=== PATIENT | female | born 1950 | race Caucasian/White ===

== ENCOUNTER → 2016-10-10 | Outpatient (REF) | payer MEDICARE, OTHER ==
[~2016-10-10] MED LIST: /ATOR40TA; /CELE20CA; /PANT40TA; ACET65TA; ALBU83IN; ASPI81TA83; ATIV0.5T; AUGMENTIN PO; AVALIDE PO; BISA10SU2; BISA5TA; BLACK COHOSH; CELEBREX PO; COLA100C2; DARV100T; DILA100C; DIOV80TA; KEPPRA PO; MILKSUS; POTA10CA2; TOPR100T; VITAMIN B COMPLE1; nystatin powder
[2016-10-10 11:52] LABS: MEAN CORPUSCULAR HEMOGLOBIN 29.2 pg (27.0-33.0); MEAN CORPUSCULAR HGB CONC 32.7 g/dl (32.0-36.5); MEAN CORPUSCULAR VOLUME 89.2 fl (80.0-96.0); WHITE BLOOD COUNT 6.9 K/mm3 (4.0-10.0)
[2016-10-10 12:21] LABS: ALBUMIN 3.7 GM/DL (3.2-5.2); ALKALINE PHOSPHATASE 61 U/L (45-117); ALT/SGPT 21 U/L (12-78); ANION GAP 7 MEQ/L (8-16); AST/SGOT 20 U/L (15-37); BILIRUBIN,TOTAL 0.4 MG/DL (0.2-1.0); BLOOD UREA NITROGEN 23 MG/DL (7-18); CALCIUM LEVEL 9.5 MG/DL (8.8-10.2); CARBON DIOXIDE LEVEL 31 MEQ/L (21-32); CHLORIDE LEVEL 102 MEQ/L (98-107); CHOLESTEROL LEVEL 150 MG/DL (<200); CREATININE FOR GFR 0.72 MG/DL (0.55-1.02); GLOMERULAR FILTRATION RATE > 60.0 (>45); GLUCOSE, FASTING 94 MG/DL (80-110); SODIUM LEVEL 140 MEQ/L (136-145); TOTAL PROTEIN 7.4 GM/DL (6.4-8.2); TRIGLYCERIDES LEVEL 209 MG/DL (<150)
== END ==
LOC: M SFHCPLAZ 08:49
PROVIDERS: ATTEND Nurse Practitioner Family
DX: M15.9 Polyosteoarthritis, unspecified (principal); I10 Essential (primary) hypertension; E88.81 Metabolic syndrome and other insulin resistance; E78.2 Mixed hyperlipidemia; E55.9 Vitamin D deficiency, unspecified; Z79.899 Other long term (current) drug therapy

== ENCOUNTER → 2017-04-05 | Outpatient (REF) | payer MEDICARE, OTHER ==
[2017-04-05 13:31] LABS: ANION GAP 5 MEQ/L (8-16); BLOOD UREA NITROGEN 23 MG/DL (7-18); CALCIUM LEVEL 9.6 MG/DL (8.8-10.2); CARBON DIOXIDE LEVEL 31 MEQ/L (21-32); CHLORIDE LEVEL 105 MEQ/L (98-107); CREATININE FOR GFR 0.75 MG/DL (0.55-1.02); GLOMERULAR FILTRATION RATE > 60.0 (>45); GLUCOSE, FASTING 99 MG/DL (80-110); POTASSIUM SERUM 4.8 MEQ/L (3.5-5.1); SODIUM LEVEL 141 MEQ/L (136-145)
== END ==
LOC: M SFHCPLAZ 08:56
PROVIDERS: ATTEND Nurse Practitioner Family
DX: I10 Essential (primary) hypertension (principal); E55.9 Vitamin D deficiency, unspecified

== ENCOUNTER → 2017-04-23 | Outpatient (CLI) | payer MEDICARE, OTHER ==
--- NOTE | 2017-04-23 10:02 | REPMRS ---
Patient History The patient states she had a clinical breast exam in 04/2017. Patient is postmenopausal. No known family history of cancer. Took hormonal contraceptives for 2 years. Digital Woman Screen Mammo: April 23, 2017 - Exam #: [id number] Bilateral CC and MLO view(s) were taken. Technologist: Beth Whitney, Technologist Prior study comparison: April 21, 2016, digital woman screen mammo performed at [facility]. April 13, 2015, digital bilateral screening mammo, performed at [facility]. FINDINGS: There are scattered fibroglandular densities. There has been no change in the appearance of the mammogram from the prior studies. There is a mild amount of residual fibroglandular tissue which is fairly symmetric. There is no interval development of dominant mass, architectural distortion, or clustered microcalcification suggestive of malignancy. ASSESSMENT: BI-RADS/ACR category 1 mammogram. Negative. Recommendation Routine screening mammogram in 1 year (for women over age 40). This mammogram was interpreted with the aid of an FDA-approved computer-aided dectection system. Electronically Signed By: Jeet Aguialr MD 04/23/17 [id number]
== END ==
LOC: M WHC 08:07
PROVIDERS: ATTEND Nurse Practitioner Family
DX: Z12.31 Encounter for screening mammogram for malignant neoplasm of breast (principal); Z78.0 Asymptomatic menopausal state; Z92.0 Personal history of contraception

== ENCOUNTER → 2017-10-04 | Outpatient (REF) | payer MEDICARE, OTHER ==
[2017-10-04 13:14] LABS: MALB URINE SIEMENS 10.3 MG/L
[2017-10-04 13:19] LABS: ALBUMIN 3.7 GM/DL (3.2-5.2); ALBUMIN/GLOBULIN RATIO 0.97 (1.00-1.93); ALKALINE PHOSPHATASE 63 U/L (45-117); ALT/SGPT 19 U/L (12-78); ANION GAP 7 MEQ/L (8-16); AST/SGOT 21 U/L (7-37); BILIRUBIN,TOTAL 0.5 MG/DL (0.2-1.0); BLOOD UREA NITROGEN 26 MG/DL (7-18); CALCIUM LEVEL 9.7 MG/DL (8.8-10.2); CARBON DIOXIDE LEVEL 31 MEQ/L (21-32); CHLORIDE LEVEL 104 MEQ/L (98-107); CHOLESTEROL LEVEL 136 MG/DL (<200); CHOLESTEROL RISK RATIO 2.518 (<5); CREATININE FOR GFR 0.89 MG/DL (0.55-1.30); GLOMERULAR FILTRATION RATE > 60.0 (>45); GLUCOSE, FASTING 98 MG/DL (70-100); HDL CHOLESTEROL 54 MG/DL (>40); LDL CHOLESTEROL 40.2 MG/DL (<100); NON-HDL-C 82 MG/DL; POTASSIUM SERUM 4.2 MEQ/L (3.5-5.1); SODIUM LEVEL 142 MEQ/L (136-145); TOTAL PROTEIN 7.5 GM/DL (6.4-8.2); TRIGLYCERIDES LEVEL 209 MG/DL (<150)
[2017-10-04 13:31] LABS: ESTIMATED AVERAGE GLUCOSE 120 MG/DL (60-110); HEMOGLOBIN A1c 5.8 %
== END ==
LOC: M SFHCPLAZ 08:02
DX: E88.81 Metabolic syndrome and other insulin resistance (principal); E78.2 Mixed hyperlipidemia; Z79.899 Other long term (current) drug therapy
CPT/HCPCS: 80053

== ENCOUNTER → 2018-02-04 | Outpatient (REF) | payer MEDICARE, OTHER ==
[2018-02-04 13:47] LABS: ANION GAP 6 MEQ/L (8-16); BLOOD UREA NITROGEN 28 MG/DL (7-18); CARBON DIOXIDE LEVEL 31 MEQ/L (21-32); CHLORIDE LEVEL 104 MEQ/L (98-107); CREATININE FOR GFR 0.88 MG/DL (0.55-1.30); GLOMERULAR FILTRATION RATE > 60.0 (>45); GLUCOSE, FASTING 113 MG/DL (70-100); POTASSIUM SERUM 4.3 MEQ/L (3.5-5.1); SODIUM LEVEL 141 MEQ/L (136-145)
[2018-02-04 14:12] LABS: TOTAL 25(OH) VITAMIN D 35.3 NG/ML (30.0-100.0)
== END ==
LOC: M SFHCPLAZ 08:50
DX: I10 Essential (primary) hypertension (principal); E55.9 Vitamin D deficiency, unspecified
CPT/HCPCS: 82306

== ENCOUNTER → 2018-04-24 | Outpatient (CLI) | payer MEDICARE, OTHER ==
--- NOTE | 2018-04-24 14:12 | REPMRS ---
Patient History The patient states she has not had a clinical breast exam in over a year. No known family history of cancer. Took hormonal contraceptives for 2 years. Digital Woman Screen Mammo: April 24, 2018 - Exam #: [id number] Bilateral CC and MLO view(s) were taken. Technologist: Beth Whitney, Technologist Prior study comparison: April 23, 2017, digital woman screen mammo performed at [facility]. April 21, 2016, digital woman screen mammo performed at [facility]. April 13, 2015, digital bilateral screening mammo, performed at [facility]. FINDINGS: The breast tissue is almost entirely fat. There has been no change in the appearance of the mammogram from the prior studies. There is no interval development of dominant mass, architectural distortion, or clustered microcalcification typical of malignancy. 3-D tomosynthesis shows no additional findings. Assessment: BI-RADS/ACR category 1 mammogram. Negative. Recommendation Routine screening mammogram of both breasts in 1 year (for women over age 40). This patient's Lifetime Breast Cancer RIsk is estimated at 6.4 %. This mammogram was interpreted with the aid of an FDA-approved computer-aided dectection system. Electronically Signed By: Isiah Mcconnell MD 04/24/18 [id number]
== END ==
LOC: M WHC 10:01
PROVIDERS: ATTEND Nurse Practitioner Family
DX: Z12.31 Encounter for screening mammogram for malignant neoplasm of breast (principal); Z92.0 Personal history of contraception

== ENCOUNTER → 2018-06-17 | Outpatient (REF) | payer MEDICARE, OTHER ==
[2018-06-17 13:09] LABS: APPEARANCE, URINE HAZY (CLEAR); BACTERIA, URINE AUTO NEGATIVE (NEGATIVE); BILIRUBIN, URINE AUTO NEGATIVE (NEGATIVE); BLOOD, URINE BLOOD 2+ (NEGATIVE); GLUCOSE, URINE (UA) AUTO NEGATIVE (NEGATIVE); KETONE, URINE AUTO NEGATIVE (NEGATIVE); LEUKOCYTE ESTERASE, URINE AUTO 2+ (NEGATIVE); MUCUS, URINE SMALL (NEGATIVE); NITRITE, URINE AUTO NEGATIVE (NEGATIVE); PROTEIN, URINE AUTO NEGATIVE (NEGATIVE); RBC, URINE AUTO TNTC /HPF (0-3); SPECIFIC GRAVITY URINE AUTO 1.017 (1.002-1.035); SQUAMOUS EPITHELIAL CELL UR AU 0 /HPF (0-6); UROBILINOGEN, URINE AUTO 0.2 mg/dL (0.0-2.0); WBC, URINE AUTO 158 /HPF (0-3)
[2018-06-17 13:12] LABS: COLOR, URINE YELLOW (YELLOW)
== END ==
LOC: M LAB REF 12:43
PROVIDERS: ATTEND Physician Assistant Medical
DX: N39.0 Urinary tract infection, site not specified (principal)

== ENCOUNTER → 2018-09-05 | Outpatient (REF) | payer MEDICARE, OTHER ==
[~2018-09-05] MED LIST changes: -/ATOR40TA; -/CELE20CA; -/PANT40TA; +CELE1CAP4; +LIPI1TAB2; +METO-745; +PROT1TAB2; -TOPR100T
[2018-09-05 10:37] LABS: ALBUMIN 3.7 GM/DL (3.2-5.2); ALT/SGPT 17 U/L (12-78); BILIRUBIN,TOTAL 0.4 MG/DL (0.2-1.0); BLOOD UREA NITROGEN 25 MG/DL (7-18); CALCIUM LEVEL 9.1 MG/DL (8.8-10.2); CARBON DIOXIDE LEVEL 31 MEQ/L (21-32); CHLORIDE LEVEL 105 MEQ/L (98-107); CHOLESTEROL LEVEL 148 MG/DL (<200); CHOLESTEROL RISK RATIO 2.642 (<5); GLOMERULAR FILTRATION RATE > 60.0 (>45); GLUCOSE, FASTING 107 MG/DL (70-100); HDL CHOLESTEROL 56 MG/DL (>40); LDL CHOLESTEROL 49 MG/DL (<100); NON-HDL-C 92 MG/DL; POTASSIUM SERUM 4.2 MEQ/L (3.5-5.1); SODIUM LEVEL 140 MEQ/L (136-145); TOTAL PROTEIN 7.4 GM/DL (6.4-8.2); TRIGLYCERIDES LEVEL 217 MG/DL (<150)
[2018-09-05 11:06] LABS: MALB URINE SIEMENS 13.4 MG/L; MAU/CREAT RATIO 12.5 MCG/MG (0.0-30.0)
[2018-09-05 11:57] LABS: HEMOGLOBIN A1c 5.9 %
== END ==
LOC: M SFHCPLAZ 08:21
PROVIDERS: ATTEND Nurse Practitioner Family
DX: I10 Essential (primary) hypertension (principal); E88.81 Metabolic syndrome and other insulin resistance; E78.2 Mixed hyperlipidemia

== ENCOUNTER → 2019-01-01 | Outpatient (REF) | payer MEDICARE, OTHER ==
[2019-01-01 10:29] LABS: BLOOD UREA NITROGEN 28 MG/DL (7-18); CARBON DIOXIDE LEVEL 33 MEQ/L (21-32); CHLORIDE LEVEL 107 MEQ/L (98-107); CREATININE FOR GFR 0.92 MG/DL (0.55-1.30); GLOMERULAR FILTRATION RATE > 60.0 (>39); GLUCOSE, FASTING 109 MG/DL (70-100); POTASSIUM SERUM 4.1 MEQ/L (3.5-5.1); SODIUM LEVEL 143 MEQ/L (136-145)
[2019-01-01 10:50] LABS: HEMOGLOBIN A1c 5.9 %
== END ==
LOC: M SFHCPLAZ 07:49
PROVIDERS: ATTEND Family Medicine
DX: R73.03 Prediabetes (principal); I10 Essential (primary) hypertension

== ENCOUNTER → 2019-03-25 | Outpatient (REF) | payer MEDICARE, OTHER ==
[2019-03-25 12:23] LABS: AMORPHOUS SEDIMENT SMALL (NEGATIVE); APPEARANCE, URINE TURBID (CLEAR); BACTERIA, URINE AUTO NEGATIVE (NEGATIVE); BILIRUBIN, URINE AUTO NEGATIVE (NEGATIVE); BLOOD, URINE BLOOD NEGATIVE (NEGATIVE); COLOR, URINE AMBER (YELLOW); GLUCOSE, URINE (UA) AUTO NEGATIVE (NEGATIVE); KETONE, URINE AUTO NEGATIVE (NEGATIVE); LEUKOCYTE ESTERASE, URINE AUTO NEGATIVE (NEGATIVE); MUCUS, URINE SMALL (NEGATIVE); NITRITE, URINE AUTO NEGATIVE (NEGATIVE); PROTEIN, URINE AUTO 1+ mg/dL (NEGATIVE); RBC, URINE AUTO 2 /HPF (0-3); SPECIFIC GRAVITY URINE AUTO 1.021 (1.002-1.035); SQUAMOUS EPITHELIAL CELL UR AU 0 /HPF (0-6); UROBILINOGEN, URINE AUTO 0.2 mg/dL (0.0-2.0); WBC, URINE AUTO 1 /HPF (0-3)
== END ==
LOC: M LAB REF 11:51
PROVIDERS: ATTEND Physician Assistant Medical
DX: N39.0 Urinary tract infection, site not specified (principal)

== ENCOUNTER → 2019-04-28 | Outpatient (CLI) | payer MEDICARE, OTHER ==
--- NOTE | 2019-04-28 14:41 | REPMRS ---
Patient History The patient states she has not had a clinical breast exam in over a year. No known family history of cancer. Took hormonal contraceptives for 2 years. 3D TOMOSYNTHESIS WAS PERFORMED. [facility] lifetime risk for breast cancer is 6.0%. Digital Woman Screen Mammo: April 28, 2019 - Exam #: [id number] Bilateral CC and MLO view(s) were taken. Technologist: Patsy Sagastume, Technologist Prior study comparison: April 24, 2018, bilateral digital woman screen mammo performed at [facility] [place]. April 23, 2017, digital woman screen mammo performed at [facility] [place]. FINDINGS: There are scattered fibroglandular densities. There has been no change in the appearance of the mammogram from the prior studies. There is a mild amount of residual fibroglandular tissue which is fairly symmetric. There is no interval development of dominant mass, architectural distortion, or clustered microcalcification suggestive of malignancy. Assessment: BI-RADS/ACR category 1 mammogram. Negative Mammogram. Recommendation Routine screening mammogram in 1 year (for women over age 40). This mammogram was interpreted with the aid of an FDA-approved computer-aided dectection system. Electronically Signed By: Jeet Aguilar MD 04/28/19 [id number]
== END ==
LOC: M WHC 13:32
PROVIDERS: ATTEND Nurse Practitioner Family
DX: Z12.31 Encounter for screening mammogram for malignant neoplasm of breast (principal); Z92.0 Personal history of contraception; I10 Essential (primary) hypertension; R73.03 Prediabetes; E78.2 Mixed hyperlipidemia; E55.9 Vitamin D deficiency, unspecified

== ENCOUNTER → 2019-04-28 | Outpatient (REF) | payer MEDICARE, OTHER ==
[2019-04-28 12:43] LABS: ALBUMIN 3.6 GM/DL (3.2-5.2); ALT/SGPT 13 U/L (12-78); BILIRUBIN,TOTAL 0.4 MG/DL (0.2-1.0); BLOOD UREA NITROGEN 27 MG/DL (7-18); CALCIUM LEVEL 9.7 MG/DL (8.8-10.2); CARBON DIOXIDE LEVEL 29 MEQ/L (21-32); CHLORIDE LEVEL 104 MEQ/L (98-107); CHOLESTEROL LEVEL 146 MG/DL (<200); CHOLESTEROL RISK RATIO 2.517 (<5); CREATININE FOR GFR 0.82 MG/DL (0.55-1.30); GLOMERULAR FILTRATION RATE > 60.0 (>39); GLUCOSE, FASTING 104 MG/DL (70-100); HDL CHOLESTEROL 58 MG/DL (>40); LDL CHOLESTEROL 57 MG/DL (<100); NON-HDL-C 88 MG/DL; POTASSIUM SERUM 4.4 MEQ/L (3.5-5.1); SODIUM LEVEL 141 MEQ/L (136-145); TOTAL PROTEIN 7.6 GM/DL (6.4-8.2); TRIGLYCERIDES LEVEL 157 MG/DL (<150)
[2019-04-28 12:49] LABS: TOTAL 25(OH) VITAMIN D 44.4 NG/ML (30.0-100.0)
[2019-04-28 12:55] LABS: HEMOGLOBIN A1c 6.3 %
[2019-04-28 13:06] LABS: MALB URINE SIEMENS 19.8 MG/L; MAU/CREAT RATIO 15.7 MCG/MG (0.0-30.0)
== END ==
LOC: M SFHCPLAZ 08:40
PROVIDERS: ATTEND Nurse Practitioner Family
DX: I10 Essential (primary) hypertension (principal); R73.03 Prediabetes; E78.2 Mixed hyperlipidemia; E55.9 Vitamin D deficiency, unspecified

== ENCOUNTER 2019-07-15 16:35 | Inpatient (IN) | payer MEDICARE, OTHER ==
[~2019-07-15] VITALS: Ht 162.6 cm; Wt 136.1 kg
[2019-07-15] MEDS ORDERED: ACETAMINOPHEN TAB 650MG DOSE (2X325MG) PO PRN (18:30)
[2019-07-15] MEDS ORDERED: MOM 30ML SUSPENSION UDC PO PRN (18:30)
[2019-07-15 20:00] VITALS: BP 145/85
[2019-07-15] MEDS ORDERED: ALLE180T33 PO (20:24)
[2019-07-15] MEDS ORDERED: MELO15TA28 PO (20:24)
[2019-07-15] MEDS ORDERED: VANC1INJ IV (20:24)
[2019-07-15] MEDS ORDERED: VITA50005 PO (20:24)
[2019-07-15] MEDS ORDERED: EQL50TAB2 PO (20:24)
[2019-07-15] MEDS ORDERED: LOSA100T5 PO (20:24)
[2019-07-15] MEDS ORDERED: CEFT1INJ5 IV (20:24)
[2019-07-15] MEDS ORDERED: METO1TAB33 PO (20:24)
[2019-07-15] MEDS ORDERED: ASPI81TA26 PO (20:24)
[2019-07-15] MEDS ORDERED: BLAC40CA PO (20:24)
[2019-07-15] MEDS ORDERED: ATOR40TA75 PO (20:24)
[2019-07-15] MEDS ORDERED: VITAD1000T PO (20:24)
[2019-07-15] MEDS ORDERED: LOVE1INJ SC (20:24)
[2019-07-15] MEDS ORDERED: PROT40IN4 IV (20:24)
[2019-07-15] MEDS ORDERED: POTA20TA6 PO (20:24)
[2019-07-15] MEDS ORDERED: AMPI2INJ18 IV (20:24)
[2019-07-15] MEDS ORDERED: VITMTA PO (20:24)
[2019-07-15] MEDS ORDERED: CALC500T52 PO (20:24)
[2019-07-15] MEDS: DOCUSATE SODIUM 100 MG CAP PO SCH (21:00)
[2019-07-15] MEDS ORDERED: SENNA 8.6 MG TAB (SENOKOT) PO SCH (21:00)
[2019-07-15] MEDS: AMPICILLIN SOD 2 GM in D5W MINI-BAG PLUS 100 ML IV SCH (23:01)
[2019-07-15] MEDS: LACTOBACILLUS ACIDOPHILUS CAP (BACID) PO SCH (23:02)
[2019-07-15] MEDS: HEPARIN SOD (PORCINE) 5000 UNITS/ML VIAL (J1644 PER 1000UNITS) SC SCH (23:02)
[2019-07-15] MEDS: SODIUM CHLORIDE 0.9% INJ 10 ML SYR IV PRN (23:40)
[2019-07-16] MEDS: AMPICILLIN SOD 2 GM in D5W MINI-BAG PLUS 100 ML IV SCH ×6 (02:34→21:51)
[2019-07-16 06:00] VITALS: BP 151/72
[2019-07-16] MEDS: SODIUM CHLORIDE 0.9% INJ 10 ML SYR IV SCH ×2 (06:14→18:20)
[2019-07-16 07:08] LABS: BASO % 0.4 % (0.0-1.0); EOS # 0.4 10^3/uL (0.0-0.5); EOS % 4.5 % (0.0-3.0); HEMATOCRIT 34.1 % (36.0-47.0); HEMOGLOBIN 10.9 g/dl (12.0-15.5); LYMPH # 1.4 10^3/uL (1.5-5.0); LYMPH % 14.2 % (24.0-44.0); MEAN CORPUSCULAR HEMOGLOBIN 28.8 pg (27.0-33.0); MONO # 0.7 10^3/uL (0.0-0.8); MONO % 7.1 % (0.0-5.0); NEUTROPHILS % 73.3 % (36.0-66.0); PLATELET COUNT, AUTOMATED 293 10^3/uL (150-450); RED BLOOD COUNT 3.79 10^6/uL (4.00-5.40); WHITE BLOOD COUNT 9.6 10^3/uL (4.0-10.0)
[2019-07-16 07:37] LABS: ALBUMIN 3.1 GM/DL (3.2-5.2); ALT/SGPT 19 U/L (12-78); BILIRUBIN,TOTAL 0.5 MG/DL (0.2-1.0); BLOOD UREA NITROGEN 10 MG/DL (7-18); CALCIUM LEVEL 9.5 MG/DL (8.8-10.2); CARBON DIOXIDE LEVEL 31 MEQ/L (21-32); CHLORIDE LEVEL 102 MEQ/L (98-107); GLOMERULAR FILTRATION RATE > 60.0 (>39); GLUCOSE, FASTING 110 MG/DL (70-100); POTASSIUM SERUM 3.4 MEQ/L (3.5-5.1); SODIUM LEVEL 140 MEQ/L (136-145); TOTAL PROTEIN 7.4 GM/DL (6.4-8.2)
[2019-07-16] MEDS: MELOXICAM (MOBIC) 7.5 MG TAB PO SCH (08:37)
[2019-07-16] MEDS: METOPROLOL SUCC (TopROL XL) 100MG *XL* TAB PO SCH (08:38)
[2019-07-16] MEDS: HEPARIN SOD (PORCINE) 5000 UNITS/ML VIAL (J1644 PER 1000UNITS) SC SCH ×2 (08:38→21:50)
[2019-07-16] MEDS: DOCUSATE SODIUM 100 MG CAP PO SCH ×2 (08:38→08:48)
[2019-07-16] MEDS: LOSARTAN 50 MG TAB PO SCH (08:38)
[2019-07-16] MEDS: hydroCHLOROthiazide 25 MG TAB PO SCH (08:39)
[2019-07-16] MEDS: OYSTER SHELL CALCIUM 500 MG TAB PO SCH (08:39)
[2019-07-16] MEDS: VITAMIN B COMPLEX/VIT C CAP PO SCH (08:39)
[2019-07-16] MEDS: ASPIRIN 81 MG CHEW TABLET PO SCH (08:39)
[2019-07-16] MEDS: VITAMIN D 1,000 INTERNATIONAL UNITS TABLET PO SCH (08:39)
[2019-07-16] MEDS: MAGNESIUM OXIDE 400 MG TAB (MAG-OX) PO SCH (08:39)
[2019-07-16] MEDS: PANTOPRAZOLE 40MG TAB (PROTONIX) PO SCH (08:39)
[2019-07-16] MEDS: LACTOBACILLUS ACIDOPHILUS CAP (BACID) PO SCH ×3 (08:39→21:49)
[2019-07-16] MEDS: MULTIVITAMINS/MINERALS THERAP 1 TAB PO SCH (08:39)
[2019-07-16] MEDS: ATORVASTATIN 20 MG TAB PO SCH (08:40)
[2019-07-16] MEDS: SODIUM CHLORIDE 0.9% INJ 10 ML SYR IV PRN ×3 (09:50→22:43)
--- NOTE | 2019-07-16 10:57 | HPEPDOC ---
Director Vaccine Note DATE OF ADMISSION: 07-15-19 DATE OF SERVICE: 07-16-19 TIME OF ADMISSION: Please refer to physician's admission order. SOURCE OF ADMISSION INFORMATION: [facility] records, assistant case manager Torri from [facility], patient CHIEF COMPLAINT: meningitis HISTORY OF PRESENT ILLNESS: 68F pmh HTN, HLD, OA, asthma, meningitis in 2009 presented to [facility] on 07-07-19 with nausea and vomiting, altered mental status and on exam had nuchal rigidity with photophobia. She was started on IV Ampicillin, Rochephin, and Vancomycin for sepsis thought to be due to meningitis and underwent an LP on 07-08-19 with CSF showing 1703 wbcs and 163 proteins. Blood, CSF, and urine cultures obtained on admission were all negative. CXR also showed bilateral lower lobe infiltrates. She continued her antibiotics and on day of discharge was told to just continue on Ampicillin for a total of 3 weeks, end date 07-28-19. She had impairments in mobility below her prior level of function and required assistance with ADL management as well. She was deemed medically appropriate for discharge to ARU on 07-15-19. REVIEW OF SYSTEMS: The following is a completed review of systems and has been reviewed. Review of systems otherwise unremarkable. PAIN: Patient self reports no pain EYES: No recent vision changes EARS, NOSE, & THROAT: No throat pain, or dysphagia, or rhinorrhea CARDIOVASCULAR: Denies chest pain or palpitations PULMONARY: Denies shortness of breath, +cough GASTROINTESTINAL: +diarrhea GENITOURINARY:denies dysuria MUSCULOSKELETAL: generalized weakness NEUROLOGICAL: denies tremor or focal weakness HEMATOLOGICAL: denies easy bruising SKIN: + abdominal rash PSYCHIATRIC: Unremarkable All other review of systems found to be negative. PAST MEDICAL HISTORY: as per HPI PAST SURGICAL HISTORY: as per HPI ALLERGIES: Please see below. MEDICATIONS: Please see below. FAMILY HISTORY: DM and COPD SOCIAL HISTORY: No smoking/illicit drugs, occasional ETOH DIET: chopped PHYSICAL EXAMINATION: VITAL SIGNS: Please see below. GENERAL: Pleasant and cooperative. No acute distress. +obese HEENT: PERRL. Extraocular movements intact. Clear conjunctiva CARDIOVASCULAR: Regular rate and rhythm. No murmurs, rubs, or gallops LUNGS: Clear to auscultation bilaterally. No wheezes. No rhonchi. ABDOMEN: [oft, nontender, nondistended. Positive bowel sounds. Normal active bowel sounds NEUROLOGICAL: Alert and oriented times three. Cranial nerves II through XII grossly intact. Sensation grossly intact (-) babniksi and Hoffmans bilat EXTREMITIES: 5\5 strength bilateral upper extremities. 5\5 strength right lower extremity. 5/5 strength in left lower extremity. SKIN: abdominal scattered papules jus under breast line, scattered seborrheic keratosis, RUE PICC, low back ecchymosis LABORATORY DATA: Please see below. IMAGING: Imaging documentation personally reviewed by record FUNCTIONAL STATUS: Premorbid: Mod-Independent with all activities of daily life as well as mobility with cane On Admission: Contact guard for ambulation, functional transfers, supervision for dressing, toileting GOALS: Mod-I community distances for ambulation, functional transfers, stairs, dressing, bathing, toileting, medical optimization ASSESSMENT:68-year-old F with past medical history of HTN, meningitis who presents status post recurrent meningitis PLAN: 1. Rehab- PT/OT advance gait training, high level balance, ADLs, strengthen/stretch/maintain ROM all 4 limbs 2. Neuro: patient currently being treated for meningitis, blood cx, CSF, and urine cx negative however antibiotics started prior to tests being drawn -c/u IV ampicillin until 3-20 per [facility]'s recs, will consult ID while here to assist with further management 3. Cardiac: hx of HTN c/u metoprolol, Losartan-HCTZ, medicine consulted to assist in management -HLD c/u statin -c/u ASA for cardio-protection 4. Resp: hx of asthma c/u Duonebs -encourage incentive spirometry, monitor for infection -KALEB with CPAP at home, machine broken, will start nocturnal 02 5. GI ppx: protonix- hold bowel meds and consider checking C diff if loose stools do not subside 6. DVT ppx: heparin and TEDs 7. : monitor PVRs 8. Pain: tylneol, and meloxicam 9. DIspo: TBD POST ADMISSION PHYSICIAN EVALUATION: Medical and functional status: Description of medical status, medical assessment: As above. Rehabilitation diagnosis and current and prior cold morbid medical conditions as above. Risk of complications and plans to mitigate them as above. Description of functional status current status is as above. Prior status as above. Status compared to preadmission: There are no clinically significant differences between the patient's current status and the information described on the preadmission screening document. Treatment plan anticipated: Treatment plan is as described above. Required disciplines including physical therapy, occupational therapy, others as noted above. Intensity of services: 3 hours a day, 6 days a week. Special considerations: There are no specific special or safety considerations that would likely preclude immediate implementation of an intensive rehabilitation program or subsequently influence the plan of care. ATTESTATION: Considering all the information above, it is my best judgment that this patient requires intensive rehabilitation therapy as described above and an inpatient hospital environment due to the complexity of nursing, medical, and rehabilitation needs required by the patient. Furthermore, this patient can reasonably be expected to participate in an benefit from an inpatient rehabilitation stay with an interdisciplinary team approach to the delivery of rehabilitation care under the direction and supervision of rehabilitation physician. PROGNOSIS: Excellent ESTIMATED LENGTH OF STAY:10-14 days. PROJECTED DISCHARGE DESTINATION: Home with family support and any durable medical equipment required to increase functional safety and mobility. TIME SPENT COUNSELING AND COORDINATING INITIAL CARE: Greater than 70 minutes. Vital Signs Vital Sign - Last 24 Hours 07/15/19 07/16/19 07/16/19 20:00 06:00 08:38 Temp 97.1 97.8 Pulse 85 86 86 Resp 20 20 B/P (MAP) 145/85 (105) 151/72 (98) 151/72 Pulse Ox 99 96 O2 Delivery Room Air Room Air Laboratory Data CBC/BMP Laboratory Tests 07/16/19 06:29 Labs 24H Laboratory Tests 2 07/16/19 06:29: Immature Granulocyte % (Auto) 0.5, Neutrophils (%) (Auto) 73.3H, Lymphocytes (%) (Auto) 14.2L, Monocytes (%) (Auto) 7.1H, Eosinophils (%) (Auto) 4.5H, Basophils (%) (Auto) 0.4, Neutrophils # (Auto) 7.0, Lymphocytes # (Auto) 1.4L, Monocytes # (Auto) 0.7, Eosinophils # (Auto) 0.4, Basophils # (Auto) 0.0, Nucleated Red Blood Cells % (auto) 0.0, Anion Gap 7L, Glomerular Filtration Rate > 60.0, Calcium Level 9.5, Total Bilirubin 0.5, Aspartate Amino Transf (AST/SGOT) 25, Alanine Aminotransferase (ALT/SGPT) 19, Alkaline Phosphatase 47, Total Protein 7.4, Albumin 3.1L, Albumin/Globulin Ratio 0.72L Home Medications Scheduled Ampicillin Sodium (Ampicillin Sodium) 2 Gm Vial, 2 GM IV Q4H, (Reported) STARTED AT [facility] ON 07/08/19 Aspirin (Aspirin EC) 81 Mg Tablet.dr, 81 MG PO DAILY, (Reported) Atorvastatin Calcium (Atorvastatin Calcium) 40 Mg Tablet, 40 MG PO DAILY, (Reported) Black Cohosh Root Extract (Black Cohosh) 40 Mg Capsule, 40 MG PO DAILY, (Reported) Calcium Carb,Gluc/Mag Ox,Gluc (Calcium Magnesium Caplet) 1 Each Tablet, 1 TAB PO DAILY, (Reported) Ceftriaxone Sodium (Ceftriaxone) 1 Gm Vial, 2 GM IV Q12H, (Reported) STARTED AT [facility] ON 07/09/19 Cholecalciferol (Vitamin D3) (Vitamin D3) 1,000 Unit Tablet, 1,000 UNITS PO DAILY, (Reported) Enoxaparin Sodium (Lovenox) 40 Mg/0.4 Ml Syringe, 40 MG SC DAILY, (Reported) STARTED AT [facility] Ergocalciferol (Vitamin D2) (Vitamin D2) 50,000 Units Cap, 50,000 UNITS PO QMONTH, (Reported) LAST SUNDAY OF EVERY MONTH Fexofenadine HCl (Kinsey Allergy) 180 Mg Tablet, 180 MG PO DAILY, (Reported) Losartan/Hydrochlorothiazide (Losartan-Hctz 100-25 mg Tab) 1 Each Tablet, 1 TAB PO DAILY, (Reported) Meloxicam (Meloxicam) 15 Mg Tablet, 15 MG PO DAILY, (Reported) Metoprolol Succinate (Metoprolol Succinate) 100 Mg Tab.er.24h, 100 MG PO DAILY, (Reported) Multivitamins (Thera M Plus Tablet) 1 Each Tablet, 1 TAB PO DAILY, (Reported) Pantoprazole Sodium (Protonix IV) 40 Mg Vial, 40 MG IV DAILY, (Reported) STARTED AT [facility] Potassium Chloride (Potassium Chloride) 20 Meq Tab.er.prt, 40 MEQ PO ASDIRECTED, (Reported) RECEIVED AT [facility] Vancomycin HCl in 5 % Dextrose (Vancomycin 1.75 Gram/500Ml-D5w) 1.75 Gm/500 Ml Plast..bag, 1.75 GM IV ASDIRECTED, (Reported) EVERY 18 HOURS - STARTED AT [facility] ON 07/12/19 Vitamin B Complex (Vitamin B Complex) 1 Each Tablet, 1 TAB PO DAILY, (Reported) Allergies Coded Allergies: No Known Drug Allergies (Verified Allergy, Unknown, 07/15/19) A-FIB/CHADSVASC A-FIB History Current/History of A-Fib/PAF?: No SHELLY NGUYEN MD Jul 16, 2019 10:57
[2019-07-16] MEDS ORDERED: POTASSIUM CHLORIDE 10 MEQ SR TABLET PO ONE (12:00)
[2019-07-16 14:00] VITALS: BP 169/75
--- NOTE | 2019-07-16 15:25 | HPEPDOC ---
General Date of Admission Jul 15, 2019 at 19:20 Date of Service: Jul 16, 2019 Chief Complaint The patient is a 68-year-old female admitted with a reason for visit of Menningitis. Source: Patient, RN/MD, Old records Exam Limitations: No limitations Timing/Duration: Resolved prior to arrival Associated Symptoms: Weakness History of Present Illness Ms. Elder is a 68-year-old female who was admitted to the ARU from [facility] with a diagnosis of meningitis, sepsis. Ms. Elder had been to the hospital earlier that day(07/07) with her , when she left to go home, but was find parked in an unfamiliar driveway. She was reportedly taken to the ED with altered mental status. In the ED, she was afebrile, however, septic and was treated empirically for meningitis in light of her having a history of meningitis some 10 years ago. Patient informed me that her daughter told her that she had the same symptoms as she had 10 years ago when she had meningitis. She was started on antibiotics as noted above, however, her LP was not completed until 12-24 hours after antibiotics had been started. Subsequently, her LP reportedly did not grow any bacteria. [facility] has discharged the patient with [address] of IV am[address]illin. Dr. Newman, infectious disease will be consulted per Dr. Narayan. Patient is seen sitting up in her recliner this afternoon, she says she feels pretty good. She just has a lot of weakness at this time after being in the hospital. She is hoping to regain much of her strength and acute rehabilitation. Patient reported loose watery stools since she started taking antibiotics for me ningitis. She has had 3 BMs today, they are certainly loose , but there was very little volume. Patient denied a history of C. difficile. She also has some postnasal drip in the morning and reported a history of chronic seasonal allergies. Home Medications Scheduled Ampicillin Sodium (Ampicillin Sodium) 2 Gm Vial, 2 GM IV Q4H, (Reported) STARTED AT [facility] ON 07/08/19 Aspirin (Aspirin EC) 81 Mg Tablet.dr, 81 MG PO DAILY, (Reported) Atorvastatin Calcium (Atorvastatin Calcium) 40 Mg Tablet, 40 MG PO DAILY, (Reported) Black Cohosh Root Extract (Black Cohosh) 40 Mg Capsule, 40 MG PO DAILY, (Reported) Calcium Carb,Gluc/Mag Ox,Gluc (Calcium Magnesium Caplet) 1 Each Tablet, 1 TAB PO DAILY, (Reported) Ceftriaxone Sodium (Ceftriaxone) 1 Gm Vial, 2 GM IV Q12H, (Reported) STARTED AT [facility] ON 07/09/19 Cholecalciferol (Vitamin D3) (Vitamin D3) 1,000 Unit Tablet, 1,000 UNITS PO DAILY, (Reported) Enoxaparin Sodium (Lovenox) 40 Mg/0.4 Ml Syringe, 40 MG SC DAILY, (Reported) STARTED AT [facility] Ergocalciferol (Vitamin D2) (Vitamin D2) 50,000 Units Cap, 50,000 UNITS PO QMONTH, (Reported) LAST SUNDAY OF EVERY MONTH Fexofenadine HCl (Kinsey Allergy) 180 Mg Tablet, 180 MG PO DAILY, (Reported) Losartan/Hydrochlorothiazide (Losartan-Hctz 100-25 mg Tab) 1 Each Tablet, 1 TAB PO DAILY, (Reported) Meloxicam (Meloxicam) 15 Mg Tablet, 15 MG PO DAILY, (Reported) Metoprolol Succinate (Metoprolol Succinate) 100 Mg Tab.er.24h, 100 MG PO DAILY, (Reported) Multivitamins (Thera M Plus Tablet) 1 Each Tablet, 1 TAB PO DAILY, (Reported) Pantoprazole Sodium (Protonix IV) 40 Mg Vial, 40 MG IV DAILY, (Reported) STARTED AT [facility] Potassium Chloride (Potassium Chloride) 20 Meq Tab.er.prt, 40 MEQ PO ASDIRECTED, (Reported) RECEIVED AT [facility] Vancomycin HCl in 5 % Dextrose (Vancomycin 1.75 Gram/500Ml-D5w) 1.75 Gm/500 Ml Plast..bag, 1.75 GM IV ASDIRECTED, (Reported) EVERY 18 HOURS - STARTED AT [facility] ON 07/12/19 Vitamin B Complex (Vitamin B Complex) 1 Each Tablet, 1 TAB PO DAILY, (Reported) Allergies Coded Allergies: No Known Drug Allergies (Verified Allergy, Unknown, 07/15/19) Past Medical History Medical History Hypertension Hyperlipidemia Asthma Osteoarthritis Seasonal allergies Surgical History None Family History Significant Family History: COPD (father, ), Diabetes (mother, ) Social History * Smoker: non-smoker Alcohol: rarely Drugs: denies A-FIB/CHADSVASC A-FIB History Current/History of A-Fib/PAF?: No Current PO Anticoag Therapy: No Review of Systems Constitutional: Reports: Weakness; Denies: Chills, Fever, Night Sweats Eyes: Denies: Pain ENT: Denies: Head Aches Skin: Denies: Rash Pulmonary: Denies: Dyspnea, Cough Cardiovascular: Denies: Chest Pain, Palpitations, Orthopnea, Paroxysmal Noc. Dyspnea, Lt Headedness Gastrointestinal: Reports: Diarrhea (denied a history of C. difficile); Denies: Nausea, Vomiting, Abdominal Pain, Constipation Genitourinary: Denies: Dysuria Hematologic: Denies: Bruising Musculoskeletal: Denies: Neck Pain, Back Pain, Joint Pain, Muscle Pain, Spasms Neurological: Denies: Weakness, Numbness, Change in speech, Confusion Psych: Reports: Mood Normal; Denies: Depression, Memory Issues Physical Examination General Exam: Positive: Alert, Cooperative, No Acute Distress, Other (morbidly obese) Eye Exam: Positive: PERRLA, Conjunctiva & lids normal, EOMI; Negative: Sclera icteric ENT Exam: Positive: Atraumatic, Mucous membr. moist/pink, Pharynx Normal Neck Exam: Positive: Supple; Negative: thyromegaly Chest Exam: Positive: Clear to auscultation, Normal air movement Heart Exam: Positive: Rate Normal, Regular Rhythm, Normal S1, Normal S2; Negative: Murmurs, Rubs Telemetry: Positive: No significant arrhythmia Abdomen Exam: Positive: Normal bowel sounds, Soft; Negative: Tenderness, Hepatospenomegaly Extremity Exam: Positive: Normal pulses; Negative: Clubbing, Cyanosis, Edema Skin Exam: Positive: Nl turgor and temperature Neuro Exam: Positive: Normal Speech, Cranial Nerves 3-12 NL Psych Exam: Positive: Mood NL, Oriented x 3 Vital Signs Vital Signs Date Time Temp Pulse Resp B/P (MAP) Pulse Ox O2 Delivery O2 Flow Rate FiO2 07/16/19 08:38 86 151/72 07/16/19 06:00 97.8 20 96 Room Air Laboratory Data Labs 24H Laboratory Tests 2 07/16/19 06:29: Immature Granulocyte % (Auto) 0.5, Neutrophils (%) (Auto) 73.3H, Lymphocytes (%) (Auto) 14.2L, Monocytes (%) (Auto) 7.1H, Eosinophils (%) (Auto) 4.5H, Basophils (%) (Auto) 0.4, Neutrophils # (Auto) 7.0, Lymphocytes # (Auto) 1.4L, Monocytes # (Auto) 0.7, Eosinophils # (Auto) 0.4, Basophils # (Auto) 0.0, Nucleated Red Blood Cells % (auto) 0.0, Anion Gap 7L, Glomerular Filtration Rate > 60.0, Calcium Level 9.5, Total Bilirubin 0.5, Aspartate Amino Transf (AST/SGOT) 25, Alanine Aminotransferase (ALT/SGPT) 19, Alkaline Phosphatase 47, Total Protein 7.4, Albumin 3.1L, Albumin/Globulin Ratio 0.72L CBC/BMP Laboratory Tests 07/16/19 06:29 Assessment/Plan Ms. Elder is a 68-year-old female who was admitted to the ARU from [facility] with a diagnosis of meningitis, sepsis. Ms. Elder had been to the hospital earlier that day(07/07) with her , when she left to go home, but was find parked in an unfamiliar driveway. She was reportedly taken to the ED with altered mental status. In the ED, she was afebrile, however, septic and was treated empirically for meningitis in light of her having a history of mening itis some 10 years ago. Patient informed me that her daughter told her that she had the same symptoms as she had 10 years ago when she had meningitis. She was started on antibiotics as noted above, however, her LP was not completed until 12-24 hours after antibiotics had been started. Subsequently, her LP reportedly did not grow any bacteria. [place] has discharged the patient with 3 weeks of IV ampicillin. Dr. Newman, infectious disease will be consulted per Dr. Narayan. Patient is seen sitting up in her recliner this afternoon, she says she feels pretty good. She just has a lot of weakness at this time after being in the hospital. She is hoping to regain much of her strength and acute rehab ilitation. Patient reported loose watery stools since she started taking antibiotics for meningitis. She has had 3 BMs today, they are certainly loose , but there was very little volume. Patient denied a history of C. difficile. She also has some postnasal drip in the morning and reported a history of chronic seasonal allergies. #1. Meningitis. Discharge from [facility] with directions to continue [address] Newman to be consulted per Dr. Narayan #2. Generalized weakness following hospitalization. Management per shoe stitcher #3. Hypertension. Continue metoprolol, hydrochlorothiazide, losartan as prescribed. #4. Hyperlipidemia. Continue statin #5. Diarrhea. Start by adding fiber as patient reported her symptoms are already getting better. Monitor closely for signs of C. difficile 2/2 recent Rx of multiple abx Plan / VTE VTE Prophylaxis Ordered?: Yes (heparin) LYNN RUSSO PA-C Jul 16, 2019 15:25
[2019-07-16] MEDS: IPRATROPIUM 0.5MG/ALBUTEROL 2.5MG INH SOL UD 3ML (DUONEB)(J7620) NEB SCH (19:36)
[2019-07-16 20:24] VITALS: BP 180/78
[2019-07-16] MEDS ORDERED: hydroCHLOROthiazide 25 MG TAB PO ONE (20:30)
[2019-07-16] MEDS: traZODone 25MG PER 1/2 TABLET PO SCH (21:49)
[2019-07-16] MEDS: FIBER-CON 625 MG TAB PO SCH (21:49)
[2019-07-16] MEDS: FLUTICASONE PROP 0.05% NASAL SPRAY 16 GM (FLONASE) NARES SCH (21:56)
[2019-07-17] VITALS: BP 180/80
[2019-07-17] MEDS: AMPICILLIN SOD 2 GM in D5W MINI-BAG PLUS 100 ML IV SCH ×6 (02:16→22:25)
[2019-07-17 02:25] VITALS: BP 146/78
[2019-07-17] MEDS: SODIUM CHLORIDE 0.9% INJ 10 ML SYR IV PRN ×2 (02:54→15:19)
[2019-07-17 05:39] VITALS: BP 140/76
[2019-07-17] MEDS: SODIUM CHLORIDE 0.9% INJ 10 ML SYR IV SCH ×2 (05:59→19:11)
[2019-07-17] MEDS: IPRATROPIUM 0.5MG/ALBUTEROL 2.5MG INH SOL UD 3ML (DUONEB)(J7620) NEB SCH ×3 (07:18→19:23)
[2019-07-17 07:45] LABS: BASO % 0.4 % (0.0-1.0); EOS # 0.4 10^3/uL (0.0-0.5); EOS % 4.1 % (0.0-3.0); HEMATOCRIT 35.7 % (36.0-47.0); HEMOGLOBIN 11.1 g/dl (12.0-15.5); LYMPH # 1.8 10^3/uL (1.5-5.0); LYMPH % 17.3 % (24.0-44.0); MEAN CORPUSCULAR HEMOGLOBIN 28.3 pg (27.0-33.0); MEAN CORPUSCULAR HGB CONC 31.1 g/dl (32.0-36.5); MEAN CORPUSCULAR VOLUME 91.1 fl (80.0-96.0); MONO # 0.6 10^3/uL (0.0-0.8); MONO % 5.7 % (0.0-5.0); NEUTROPHILS # 7.6 10^3/uL (1.5-8.5); NEUTROPHILS % 71.9 % (36.0-66.0); PLATELET COUNT, AUTOMATED 298 10^3/uL (150-450); RED BLOOD COUNT 3.92 10^6/uL (4.00-5.40); WHITE BLOOD COUNT 10.5 10^3/uL (4.0-10.0)
[2019-07-17 08:19] LABS: BLOOD UREA NITROGEN 12 MG/DL (7-18); CALCIUM LEVEL 9.8 MG/DL (8.8-10.2); CARBON DIOXIDE LEVEL 35 MEQ/L (21-32); CHLORIDE LEVEL 101 MEQ/L (98-107); CREATININE FOR GFR 0.72 MG/DL (0.55-1.30); GLOMERULAR FILTRATION RATE > 60.0 (>39); GLUCOSE, FASTING 129 MG/DL (70-100); POTASSIUM SERUM 3.9 MEQ/L (3.5-5.1); SODIUM LEVEL 139 MEQ/L (136-145)
[2019-07-17] MEDS: ATORVASTATIN 20 MG TAB PO SCH (10:13)
[2019-07-17] MEDS: PANTOPRAZOLE 40MG TAB (PROTONIX) PO SCH (10:13)
[2019-07-17] MEDS: FIBER-CON 625 MG TAB PO SCH ×2 (10:13→22:23)
[2019-07-17] MEDS: LOSARTAN 50 MG TAB PO SCH (10:13)
[2019-07-17] MEDS: METOPROLOL SUCC (TopROL XL) 100MG *XL* TAB PO SCH (10:14)
[2019-07-17] MEDS: MAGNESIUM OXIDE 400 MG TAB (MAG-OX) PO SCH (10:14)
[2019-07-17] MEDS: ASPIRIN 81 MG CHEW TABLET PO SCH (10:15)
[2019-07-17] MEDS: OYSTER SHELL CALCIUM 500 MG TAB PO SCH (10:15)
[2019-07-17] MEDS: hydroCHLOROthiazide 25 MG TAB PO SCH (10:15)
[2019-07-17] MEDS: VITAMIN D 1,000 INTERNATIONAL UNITS TABLET PO SCH (10:15)
[2019-07-17] MEDS: MELOXICAM (MOBIC) 7.5 MG TAB PO SCH (10:15)
[2019-07-17] MEDS: LACTOBACILLUS ACIDOPHILUS CAP (BACID) PO SCH ×3 (10:15→22:24)
[2019-07-17] MEDS: MULTIVITAMINS/MINERALS THERAP 1 TAB PO SCH (10:15)
[2019-07-17] MEDS: HEPARIN SOD (PORCINE) 5000 UNITS/ML VIAL (J1644 PER 1000UNITS) SC SCH ×2 (10:16→22:24)
[2019-07-17] MEDS: FLUTICASONE PROP 0.05% NASAL SPRAY 16 GM (FLONASE) NARES SCH (10:17)
[2019-07-17] MEDS: VITAMIN B COMPLEX/VIT C CAP PO SCH (10:29)
[2019-07-17 10:54] VITALS: BP 156/80
[2019-07-17 11:44] LABS: C REACTIVE PROTEIN QUANTITATIV 3.59 MG/DL (0.00-0.30)
[2019-07-17 14:00] VITALS: BP 135/65
--- NOTE | 2019-07-17 15:16 | IPNPDOC ---
PM&R Progress Note DATE OF SERVICE: Jul 17, 2019 Bench Examiner Progress Note Subjective: Patient reporting her elgs feel less swollen today since wearing the TEDs. She is in good spirits and feels she is getting stronger. REVIEW OF SYSTEMS: The following is a completed review of systems and has been reviewed. Review of systems otherwise unremarkable. PAIN: Patient self reports no pain EYES: No recent vision changes EARS, NOSE, & THROAT: No throat pain, or dysphagia, or rhinorrhea CARDIOVASCULAR: Denies chest pain or palpitations PULMONARY: Denies shortness of breath, +cough GASTROINTESTINAL: +diarrhea (improving) GENITOURINARY:denies dysuria MUSCULOSKELETAL: generalized weakness NEUROLOGICAL: denies tremor or focal weakness HEMATOLOGICAL: denies easy bruising SKIN: + abdominal rash PSYCHIATRIC: Unremarkable All other review of systems found to be negative. PHYSICAL EXAMINATION: VITAL SIGNS: Please see below. GENERAL: Pleasant and cooperative. No acute distress. +obese HEENT: PERRL. Extraocular movements intact. Clear conjunctiva CARDIOVASCULAR: Regular rate and rhythm. No murmurs, rubs, or gallops LUNGS: Clear to auscultation bilaterally. No wheezes. No rhonchi. ABDOMEN: [oft, nontender, nondistended. Positive bowel sounds. Normal active bowel sounds NEUROLOGICAL: Alert and oriented times three. Cranial nerves II through XII grossly intact. Sensation grossly intact (-) babniksi and Hoffmans bilat EXTREMITIES: 5\5 strength bilateral upper extremities. 5\5 strength right lower extremity. 5/5 strength in left lower extremity. SKIN: abdominal scattered papules jus under breast line, scattered seborrheic keratosis, RUE PICC, low back ecchymosis ASSESSMENT:68-year-old F with past medical history of HTN, meningitis who presents status post recurrent meningitis PLAN: 1. Rehab- PT/OT advance gait training, high level balance, ADLs, strengthen/stretch/maintain ROM all 4 limbs 2. Neuro: patient currently being treated for meningitis, blood cx, CSF, and urine cx negative however antibiotics started prior to tests being drawn -c/u IV ampicillin until 07-28-19 per [place]'s recs, Dr. Newman consulted, will try to obtain CSF from [place] to run PCR while here, c/u to trend CRP/ESR 3. Cardiac: hx of HTN c/u metoprolol, Losartan-HCTZ, medicine consulted to assist in management -HLD c/u statin -c/u ASA for cardio-protection 4. Resp: hx of asthma c/u Duonebs -encourage incentive spirometry, monitor for infection -KALEB with CPAP at home, machine broken, c/u nocturnal 02 5. GI ppx: protonix- hold bowel meds and consider checking C diff if loose stools do not subside 6. DVT ppx: heparin and TEDs 7. : monitor PVRs 8. Pain: tylneol, and meloxicam 9. DIspo: 07-23-19 to home, progressing towards goals Allergies Coded Allergies: No Known Drug Allergies (Verified Allergy, Unknown, 07/15/19) Vital Signs Vital Signs Date Time Temp Pulse Resp B/P (MAP) Pulse Ox O2 Delivery O2 Flow Rate FiO2 07/17/19 14:00 97.4 84 19 135/65 (88) 96 Room Air 07/17/19 10:54 2.0 Laboratory Data CBC/BMP Laboratory Tests 07/17/19 07:26 07/17/19 07:27 Labs 24H Laboratory Tests 2 07/17/19 07:26: Anion Gap 3L, Glomerular Filtration Rate > 60.0, Calcium Level 9.8, C-Reactive P rotein, Quantitative 3.59H 07/17/19 07:27: Immature Granulocyte % (Auto) 0.6, Neutrophils (%) (Auto) 71.9H, Lymphocytes (%) (Auto) 17.3L, Monocytes (%) (Auto) 5.7H, Eosinophils (%) (Auto) 4.1H, Basophils (%) (Auto) 0.4, Neutrophils # (Auto) 7.6, Lymphocytes # (Auto) 1.8, Monocytes # (Auto) 0.6, Eosinophils # (Auto) 0.4, Basophils # (Auto) 0.0, Nucleated Red Blood Cells % (auto) 0.0 Current Medications Current Medications Current Medications Medications (Trade) Dose Ordered Sig/Danielle Route PRN Reason Start Time Stop Time Status Last Admin Dose Admin Acetaminophen (Tylenol Tab) 650 mg Q4HP PRN PO fever/MILD PAIN (PS 1-4) 07/15/19 18:30 Albuterol/ Ipratropium (Duoneb (Ipr 0.5mg/Alb 2.5mg)) 3 ml RTID NEB 07/16/19 20:00 07/17/19 13:13 Ampicillin Sodium 2 gm/Dextrose 100 ml @ 200 mls/hr Q4H IV 07/15/19 22:00 07/28/19 23:00 07/17/19 10:17 Aspirin (Aspirin Chewable) 81 mg DAILY PO 07/16/19 09:00 07/17/19 10:15 Atorvastatin Calcium (Lipitor) 40 mg DAILY PO 07/16/19 09:00 07/17/19 10:13 Calcium Polycarbophil (Fiber Con) 1 ea BID PO 07/16/19 21:00 07/17/19 10:13 Calcium Carbonate (Oscal) 500 mg DAILY PO 07/16/19 09:00 07/17/19 10:15 Docusate Sodium (Colace) 100 mg BID PO 07/15/19 21:00 07/16/19 17:42 DC Fluticasone Propionate (Flonase 0.05% Nasal [place]) 2 spray DAILY NARES 07/16/19 21:00 07/17/19 10:17 Heparin Sodium (Heparin (Flush)) 200 units ASDIRECTED PRN IV SEE LABEL COMMENTS 07/15/19 23:30 07/17/19 02:54 Heparin Sodium (Heparin (Flush)) 200 units PICC IV 07/16/19 06:00 07/17/19 05:59 Heparin Sodium (Porcine) (Heparin) 5,000 units Q12H SC 07/15/19 21:00 07/17/19 10:16 Home Med (Med Rec Complete!) ASDIRECTED XX 07/15/19 20:30 07/15/19 20:29 DC Hydrochlorothiazide (Hydrodiuril) 25 mg DAILY PO 07/16/19 09:00 07/17/19 10:15 Lactobacillus Acidophilus (Bacid) 1 ea TID PO 07/15/19 21:00 07/17/19 10:15 Losartan Potassium (Cozaar) 100 mg DAILY PO 07/16/19 09:00 07/17/19 10:13 Magnesium Hydroxide (Milk Of Magnesia) 30 ml DAILYPRN PRN PO CONSTIPATION 07/15/19 18:30 Magnesium Oxide (Mag-Ox) 400 mg DAILY PO 07/16/19 09:00 07/17/19 10:14 Meloxicam (Mobic) 15 mg DAILY PO 07/16/19 09:00 07/17/19 10:15 Metoprolol Succinate (TopROL XL) 100 mg DAILY PO 07/16/19 09:00 07/17/19 10:14 Multivitamins (Theragram-M) 1 tab DAILY PO 07/16/19 09:00 07/17/19 10:15 Pantoprazole Sodium (Protonix) 40 mg DAILY PO 07/16/19 09:00 07/17/19 10:13 Senna (Senokot) 1 tab QHS PO 07/15/19 21:00 07/16/19 17:42 DC Sodium Chloride (Saline Lock Flush) 10 ml ASDIRECTED PRN IV SEE LABEL COMMENTS 07/15/19 23:30 07/17/19 02:54 Sodium Chloride (Saline Lock Flush) 10 ml PICC IV 07/16/19 06:00 07/17/19 05:59 Trazodone HCl (Desyrel) 25 mg QHS PO 07/16/19 21:00 07/16/19 21:49 Vitamin B Complex/ Vitamin C (Therapeutic B Complex w/C) 1 cap DAILY PO 07/16/19 09:00 07/17/19 10:29 Vitamin D (Vitamin D) 1,000 units DAILY PO 07/16/19 09:00 07/17/19 10:15 SHELLY NGUYEN MD Jul 17, 2019 15:15
[2019-07-17 21:00] VITALS: BP 160/77
[2019-07-17] MEDS: traZODone 25MG PER 1/2 TABLET PO SCH (22:23)
[2019-07-17] MEDS: NYSTATIN 100,000 UNITS/GM TOPICAL PWD 15 GM TOP SCH (22:24)
--- NOTE | 2019-07-17 22:46 | CR ---
DATE OF INFECTIOUS DISEASE CONSULTATION: 07/17/2019 REQUESTING PHYSICIAN: Dr. Muller REASON FOR CONSULTATION: For followup on bacterial meningitis. HISTORY OF PRESENT ILLNESS Aditi is a 68-year-old female who had a previous history of viral meningitis in 2009. Was at [facility] with her who was getting surgery done on July 06 when she started not feeling well, had nausea, vomiting, mental status changes and fever. She was found in her car in some random driveway after she drove herself and was very confused. She was brought into the hospital where she had a lumbar puncture done on 07/07 after she had received IV antibiotics. LP was consistent with bacterial meningitis with 1703 white blood cells, 91% PMNs and a total protein of 163. Gram stain had no organisms seen, but white cells were seen and culture were negative after 72 hours. She was initially treated with broad-spectrum antibiotics and eventually was discharged home on IV ampicillin to continue for total of 3 weeks per previous, infectious disease consult that was done on the telephone. There was no ID on the case but she was seen by neurology in a telephone consultation of infectious disease. A chest x-ray had showed bilateral lower lobe infiltrates. The patient is clinically doing very well after 9 days of antibiotics. She denies any headache. No neck stiffness. No nausea, vomiting or diarrhea. No fever or chills. She is in acute rehabilitation for one week. She is concerned about going home with IV ampicillin every 4 hours. LABORATORY DATA Significant for hypertension, hyperlipidemia, osteoarthritis, asthma, history of viral meningitis in 2009. REVIEW OF SYSTEMS: The patient denies any visual changes. No sore throat. No dysphagia, rhinorrhea, no chest pain or palpitation. She had some diarrhea but that is improved. No dysuria, hematuria or flank pain, headache has resolved. She has a rash underneath her breasts bilaterally and her right foot but it is nonpruritic. PAST MEDICAL HISTORY: Significant for diabetes and COPD. ALLERGIES: NO KNOWN DRUG ALLERGIES. MEDICATIONS: Nystatin topical twice a day on her breasts, Flonase 2 sprays inhaled daily, calcium polycarbophil 1 tablet by mouth twice a day, FiberCon, trazodone 25 mg by mouth at bedtime, albuterol/Atrovent nebs as needed, pantoprazole 40 mg by mouth daily, meloxicam 15 mg by mouth daily, vitamin D 1000 units by mouth daily, losartan 100 mg by mouth daily, hydrochlorothiazide 25 mg by mouth daily, metoprolol 100 mg by mouth daily, Lipitor 40 mg by mouth daily, aspirin 81 mg by mouth daily. Os-Jason 500 mg by mouth daily, Max oxide 400 mg daily, therapeutic vitamin B and C 1 tablet daily, multivitamin 1 tablet daily, ampicillin 2 grams IV every 4 hours. Tylenol as needed. LABORATORY DATA White count 10.5, hemoglobin 11.1, hematocrit 35.7, platelets 298, 72% neutrophils, 17% lymphocytes, 5% monocytes. Sodium 139, potassium 3.9, chloride 101, bicarb 35, BUN 12, creatinine 0.72, glucose 129, calcium 9.8, CRP 3.59, AST 25, ALT 19. PHYSICAL EXAMINATION: She is a pleasant healthy looking elderly female in no acute distress. Heart: Normal S1, S2. No murmurs, rubs or gallops. Lungs are clear. No wheezes, rales or rhonchi. Abdomen: Soft, nontender. No hepatosplenomegaly. Back: No CVA or lumbosacral tenderness. Extremities: No clubbing, cyanosis. She has +2 pitting edema bilaterally. She has dry feet, right foot especially had faint maculopapular rash that is nonpruritic. Under her breast bilaterally she has erythematous macules that are also nonpruritic. Neck is supple. No JVD. No carotid bruits. IMPRESSION This is a 68-year-old female who was admitted on July 11 with acute onset of severe headache, confusion and meningoencephalitis with CSF findings consistent with bacterial meningitis. The patient had received 24 hours of IV antibiotics before she had a lumbar puncture. She had been treated initially with broad-spectrum antibiotics and currently is on IV ampicillin. Recommendation by the telephone consultation with infectious disease in [place] was to treat her for a total of 3 days. PLAN I have called [facility] to see if they could send us any CSF specimen so we can run a [employer] multiplex PCR to try to find a pathogen and hopefully shorten the duration of antibiotics. At this point, she is improving with cefazolin and doing very well. Probably is back to her baseline. Will continue with IV ampicillin until I try to find the CSF specimen and see if we can run a PCR on it. If the patient is ready for discharge home and we do not have further testing done or etiology she could be sent home on IV ampicillin at a dose of 12 grams continuous infusion that will be infused every 24 hours with one bag as continuous and IV bag will need to be changed once a day. The patient is agreeable. Consult [facility] when patient ready for discharge and further recommendations. I will continue to follow for her home IV antibiotics.
[2019-07-18] MEDS: AMPICILLIN SOD 2 GM in D5W MINI-BAG PLUS 100 ML IV SCH ×6 (02:46→22:41)
[2019-07-18] MEDS: SODIUM CHLORIDE 0.9% INJ 10 ML SYR IV SCH ×2 (06:17→17:44)
[2019-07-18 06:45] VITALS: BP 152/72
[2019-07-18 07:19] LABS: BASO % 0.3 % (0.0-1.0); EOS # 0.4 10^3/uL (0.0-0.5); HEMATOCRIT 34.5 % (36.0-47.0); HEMOGLOBIN 10.8 g/dl (12.0-15.5); LYMPH # 1.6 10^3/uL (1.5-5.0); LYMPH % 15.4 % (24.0-44.0); MEAN CORPUSCULAR HEMOGLOBIN 28.1 pg (27.0-33.0); MEAN CORPUSCULAR HGB CONC 31.3 g/dl (32.0-36.5); MEAN CORPUSCULAR VOLUME 89.6 fl (80.0-96.0); MONO # 0.6 10^3/uL (0.0-0.8); MONO % 6.2 % (0.0-5.0); NEUTROPHILS # 7.5 10^3/uL (1.5-8.5); NEUTROPHILS % 73.7 % (36.0-66.0); PLATELET COUNT, AUTOMATED 283 10^3/uL (150-450); RED BLOOD COUNT 3.85 10^6/uL (4.00-5.40); WHITE BLOOD COUNT 10.2 10^3/uL (4.0-10.0)
[2019-07-18 07:39] LABS: ALBUMIN 2.8 GM/DL (3.2-5.2); ALT/SGPT 16 U/L (12-78); BILIRUBIN,TOTAL 0.4 MG/DL (0.2-1.0); BLOOD UREA NITROGEN 14 MG/DL (7-18); C REACTIVE PROTEIN QUANTITATIV 2.91 MG/DL (0.00-0.30); CALCIUM LEVEL 9.5 MG/DL (8.8-10.2); CARBON DIOXIDE LEVEL 33 MEQ/L (21-32); CHLORIDE LEVEL 103 MEQ/L (98-107); GLOMERULAR FILTRATION RATE > 60.0 (>39); GLUCOSE, FASTING 113 MG/DL (70-100); POTASSIUM SERUM 3.8 MEQ/L (3.5-5.1); SODIUM LEVEL 140 MEQ/L (136-145); TOTAL PROTEIN 7.2 GM/DL (6.4-8.2)
[2019-07-18] MEDS: IPRATROPIUM 0.5MG/ALBUTEROL 2.5MG INH SOL UD 3ML (DUONEB)(J7620) NEB SCH ×3 (08:00→19:48)
[2019-07-18 09:00] VITALS: BP 150/78
[2019-07-18] MEDS: FIBER-CON 625 MG TAB PO SCH ×2 (09:00→20:28)
[2019-07-18 09:26] LABS: ERYTHROCYTE SEDIMENTATION RATE 61 mm/hr (0-30)
[2019-07-18] MEDS: HEPARIN SOD (PORCINE) 5000 UNITS/ML VIAL (J1644 PER 1000UNITS) SC SCH ×2 (10:00→20:27)
[2019-07-18] MEDS: VITAMIN B COMPLEX/VIT C CAP PO SCH (10:01)
[2019-07-18] MEDS: OYSTER SHELL CALCIUM 500 MG TAB PO SCH (10:01)
[2019-07-18] MEDS: LACTOBACILLUS ACIDOPHILUS CAP (BACID) PO SCH ×3 (10:01→20:28)
[2019-07-18] MEDS: ASPIRIN 81 MG CHEW TABLET PO SCH (10:01)
[2019-07-18] MEDS: MELOXICAM (MOBIC) 7.5 MG TAB PO SCH (10:02)
[2019-07-18] MEDS: METOPROLOL SUCC (TopROL XL) 100MG *XL* TAB PO SCH (10:02)
[2019-07-18] MEDS: LOSARTAN 50 MG TAB PO SCH (10:03)
[2019-07-18] MEDS: VITAMIN D 1,000 INTERNATIONAL UNITS TABLET PO SCH (10:03)
[2019-07-18] MEDS: hydroCHLOROthiazide 25 MG TAB PO SCH (10:03)
[2019-07-18] MEDS: MULTIVITAMINS/MINERALS THERAP 1 TAB PO SCH (10:03)
[2019-07-18] MEDS: MAGNESIUM OXIDE 400 MG TAB (MAG-OX) PO SCH (10:03)
[2019-07-18] MEDS: FLUTICASONE PROP 0.05% NASAL SPRAY 16 GM (FLONASE) NARES SCH (10:04)
[2019-07-18] MEDS: PANTOPRAZOLE 40MG TAB (PROTONIX) PO SCH (10:04)
[2019-07-18] MEDS: ATORVASTATIN 20 MG TAB PO SCH (10:04)
[2019-07-18] MEDS: NYSTATIN 100,000 UNITS/GM TOPICAL PWD 15 GM TOP SCH ×2 (10:05→20:30)
--- NOTE | 2019-07-18 10:59 | IPNPDOC ---
PM&R Progress Note DATE OF SERVICE: Jul 18, 2019 Manager Graphic Progress Note Subjective: Patient reporting she feels well today and is wondering if she will have to give herself the antibiotics at home every 4 hours. REVIEW OF SYSTEMS: The following is a completed review of systems and has been reviewed. Review of systems otherwise unremarkable. PAIN: Patient self reports no pain EYES: No recent vision changes EARS, NOSE, & THROAT: No throat pain, or dysphagia, or rhinorrhea CARDIOVASCULAR: Denies chest pain or palpitations PULMONARY: Denies shortness of breath, +cough GASTROINTESTINAL: +diarrhea (improving) GENITOURINARY:denies dysuria MUSCULOSKELETAL: generalized weakness NEUROLOGICAL: denies tremor or focal weakness HEMATOLOGICAL: denies easy bruising SKIN: + abdominal rash PSYCHIATRIC: Unremarkable All other review of systems found to be negative. PHYSICAL EXAMINATION: VITAL SIGNS: Please see below. GENERAL: Pleasant and cooperative. No acute distress. +obese HEENT: PERRL. Extraocular movements intact. Clear conjunctiva CARDIOVASCULAR: Regular rate and rhythm. No murmurs, rubs, or gallops LUNGS: Clear to auscultation bilaterally. No wheezes. No rhonchi. ABDOMEN: [oft, nontender, nondistended. Positive bowel sounds. Normal active bowel sounds NEUROLOGICAL: Alert and oriented times three. Cranial nerves II through XII grossly intact. Sensation grossly intact (-) babniksi and Hoffmans bilat EXTREMITIES: 5\5 strength bilateral upper extremities. 5\5 strength right lower extremity. 5/5 strength in left lower extremity. SKIN: abdominal scattered papules jus under breast line, scattered seborrheic keratosis, RUE PICC, low back ecchymosis ASSESSMENT:68-year-old F with past medical history of HTN, meningitis who presents status post recurrent meningitis PLAN: 1. Rehab- PT/OT advance gait training, high level balance, ADLs, strengthen/stretch/maintain ROM all 4 limbs 2. Neuro: patient currently being treated for meningitis, blood cx, CSF, and urine cx negative however antibiotics started prior to tests being drawn -c/u IV ampicillin until 07-28-19 per [place]'s recs, Dr. Newman consulted, [place] from [place] state, awaiting results- c/u to trend CRP/ESR 3. Cardiac: hx of HTN c/u metoprolol, Losartan-HCTZ, medicine consulted to assist in management -HLD c/u statin -c/u ASA for cardio-protection 4. Resp: hx of asthma c/u Duonebs -encourage incentive spirometry, monitor for infection -KALEB with CPAP at home, machine broken, c/u nocturnal 02 5. GI ppx: protonix- hold bowel meds and consider checking C diff if loose stools do not subside 6. DVT ppx: heparin and TEDs 7. : monitor PVRs 8. Pain: tylneol, and meloxicam 9. DIspo: 07-23-19 to home, progressing towards goals Allergies Coded Allergies: No Known Drug Allergies (Verified Allergy, Unknown, 07/15/19) Vital Signs Vital Signs Date Time Temp Pulse Resp B/P (MAP) Pulse Ox O2 Delivery O2 Flow Rate FiO2 07/18/19 10:02 70 150/78 07/18/19 06:45 96.8 18 97 Room Air 07/17/19 10:54 2.0 Laboratory Data CBC/BMP Laboratory Tests 07/18/19 06:46 Labs 24H Laboratory Tests 2 07/18/19 06:46: Immature Granulocyte % (Auto) 0.4, Neutrophils (%) (Auto) 73.7H, Lymphocytes (%) (Auto) 15.4L, Monocytes (%) (Auto) 6.2H, Eosinophils (%) (Auto) 4.0H, Basophils (%) (Auto) 0.3, Neutrophils # (Auto) 7.5, Lymphocytes # (Auto) 1.6, Monocytes # (Auto) 0.6, Eosinophils # (Auto) 0.4, Basophils # (Auto) 0.0, Nucleated Red Blood Cells % (auto) 0.0, Erythrocyte Sedimentation Rate 61H, Anion Gap 4L, Glomerular Filtration Rate > 60.0, Calcium Level 9.5, Total Bilirubin 0.4, Aspartate Amino Transf (AST/SGOT) 16, Alanine Aminotransferase (ALT/SGPT) 16, Alkaline Phosphatase 52, C-Reactive Protein, Quantitative 2.91H, Total Protein 7.2, Albumin 2.8L, Albumin/Globulin Ratio 0.64L Current Medications Current Medications Current Medications Medications (Trade) Dose Ordered Sig/Danielle Route PRN Reason Start Time Stop Time Status Last Admin Dose Admin Acetaminophen (Tylenol Tab) 650 mg Q4HP PRN PO fever/MILD PAIN (PS 1-4) 07/15/19 18:30 Albuterol/ Ipratropium (Duoneb (Ipr 0.5mg/Alb 2.5mg)) 3 ml RTID NEB 07/16/19 20:00 07/17/19 19:23 Ampicillin Sodium 2 gm/Dextrose 100 ml @ 200 mls/hr Q4H IV 07/15/19 22:00 07/28/19 23:00 07/18/19 10:05 Aspirin (Aspirin Chewable) 81 mg DAILY PO 07/16/19 09:00 07/18/19 10:01 Atorvastatin Calcium (Lipitor) 40 mg DAILY PO 07/16/19 09:00 07/18/19 10:04 Calcium Polycarbophil (Fiber Con) 1 ea BID PO 07/16/19 21:00 07/17/19 22:23 Calcium Carbonate (Oscal) 500 mg DAILY PO 07/16/19 09:00 07/18/19 10:01 Docusate Sodium (Colace) 100 mg BID PO 07/15/19 21:00 07/16/19 17:42 DC Fluticasone Propionate (Flonase 0.05% Nasal [place]) 2 spray DAILY NARES 07/16/19 21:00 07/18/19 10:04 Heparin Sodium (Heparin (Flush)) 200 units ASDIRECTED PRN IV SEE LABEL COMMENTS 07/15/19 23:30 07/17/19 02:54 Heparin Sodium (Heparin (Flush)) 200 units PICC IV 07/16/19 06:00 07/18/19 06:17 Heparin Sodium (Porcine) (Heparin) 5,000 units Q12H SC 07/15/19 21:00 07/18/19 10:00 Home Med (Med Rec Complete!) ASDIRECTED XX 07/15/19 20:30 07/15/19 20:29 DC Hydrochlorothiazide (Hydrodiuril) 25 mg DAILY PO 07/16/19 09:00 07/18/19 10:03 Lactobacillus Acidophilus (Bacid) 1 ea TID PO 07/15/19 21:00 07/18/19 10:01 Losartan Potassium (Cozaar) 100 mg DAILY PO 07/16/19 09:00 07/18/19 10:03 Magnesium Hydroxide (Milk Of Magnesia) 30 ml DAILYPRN PRN PO CONSTIPATION 07/15/19 18:30 Magnesium Oxide (Mag-Ox) 400 mg DAILY PO 07/16/19 09:00 07/18/19 10:03 Meloxicam (Mobic) 15 mg DAILY PO 07/16/19 09:00 07/18/19 10:02 Metoprolol Succinate (TopROL XL) 100 mg DAILY PO 07/16/19 09:00 07/18/19 10:02 Multivitamins (Theragram-M) 1 tab DAILY PO 07/16/19 09:00 07/18/19 10:03 Nystatin (Mycostatin Powder, Nystop) 1 dose BID TOP 07/17/19 21:00 07/18/19 10:05 Pantoprazole Sodium (Protonix) 40 mg DAILY PO 07/16/19 09:00 07/18/19 10:04 Senna (Senokot) 1 tab QHS PO 07/15/19 21:00 07/16/19 17:42 DC Sodium Chloride (Saline Lock Flush) 10 ml ASDIRECTED PRN IV SEE LABEL COMMENTS 07/15/19 23:30 07/17/19 15:19 Sodium Chloride (Saline Lock Flush) 10 ml PICC IV 07/16/19 06:00 07/18/19 06:17 Trazodone HCl (Desyrel) 25 mg QHS PO 07/16/19 21:00 07/17/19 22:23 Vitamin B Complex/ Vitamin C (Therapeutic B Complex w/C) 1 cap DAILY PO 07/16/19 09:00 07/18/19 10:01 Vitamin D (Vitamin D) 1,000 units DAILY PO 07/16/19 09:00 07/18/19 10:03 SHELLY NGUYEN MD Jul 18, 2019 10:59
[2019-07-18 18:40] LABS: CLOSTRIDIUM DIFFICILE PCR NEGATIVE (NEGATIVE)
[2019-07-18 20:00] VITALS: BP 144/80
[2019-07-18] MEDS: LOPERAMIDE 2 MG CAPLET PO PRN ×2 (20:28→22:41)
[2019-07-18] MEDS: traZODone 25MG PER 1/2 TABLET PO SCH (22:41)
[2019-07-18] MEDS: SODIUM CHLORIDE 0.9% INJ 10 ML SYR IV PRN (22:42)
--- NOTE | 2019-07-18 22:47 | IPN ---
DATE: 07/18/2019 Aditi was doing great. She was seen in physical therapy. She is improving. She still needs assistance to get up from her chair, using the walker and improving well. She states her rash under her breasts continues to be there, but is not pruritic. LABORATORY DATA White count 10.2, hemoglobin 10.8, hematocrit 34.5, platelets 283, 74% neutrophils, 15% lymphocytes, 6% monocytes. ESR 61. Sodium 140, potassium 3.8, chloride 103, bicarb 33, BUN 14, creatinine 0.7, glucose 113, calcium 9.5, AST 16, ALT 16, alkaline phosphatase 52, CRP 2.91. MEDICATIONS Ampicillin 2 grams IV every 4 hours, currently day number 11. PHYSICAL EXAMINATION: Temperature is 96.8, pulse 68, respirations 18, blood pressure 152/72, O2 97% on room air. Heart: Normal S1, S2, no murmurs, rubs or gallops. Lungs are clear. No wheezes, rales or rhonchi. Abdomen: Obese, soft, nontender. Under her breasts there is erythema bilaterally. Extremities: +1 pitting edema. IMPRESSION 1. Bacterial meningitis with negative culture[place] [id number] with 91% PMNs. The specimen has been sent from [facility] to the [facility] for further identification of the pathogen as the culture at [place] was negative after she had received 24 hours of antibiotics. 2. Rash under breasts being treated with nystatin powder. On her right foot it is being treated with Eucerin. It has not worsened and probably not allergic rash and more related to fungal infection and dry skin. PLAN Continue with current treatment IV ampicillin 2 grams every 4 hours. 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 If we are able to obtain the CSF and pathogen and it is not Listeria, then her treatment course could be shortened to 2 week if it is pneumococcal. The case has been discussed with microbiology and Dr. Muller.
[2019-07-19] MEDS: LOPERAMIDE 2 MG CAPLET PO PRN ×4 (00:53→22:43)
[2019-07-19] MEDS: AMPICILLIN SOD 2 GM in D5W MINI-BAG PLUS 100 ML IV SCH ×6 (02:18→21:35)
[2019-07-19] MEDS: SODIUM CHLORIDE 0.9% INJ 10 ML SYR IV PRN (02:19)
[2019-07-19 05:10] VITALS: BP 142/65
[2019-07-19] MEDS: SODIUM CHLORIDE 0.9% INJ 10 ML SYR IV SCH ×2 (06:04→17:31)
[2019-07-19 07:34] LABS: HEMATOCRIT 36.3 % (36.0-47.0); HEMOGLOBIN 11.3 g/dl (12.0-15.5); MEAN CORPUSCULAR HEMOGLOBIN 28.1 pg (27.0-33.0); MEAN CORPUSCULAR HGB CONC 31.1 g/dl (32.0-36.5); MEAN CORPUSCULAR VOLUME 90.3 fl (80.0-96.0); PLATELET COUNT, AUTOMATED 316 10^3/uL (150-450); RED BLOOD COUNT 4.02 10^6/uL (4.00-5.40); WHITE BLOOD COUNT 11.7 10^3/uL (4.0-10.0)
[2019-07-19] MEDS: IPRATROPIUM 0.5MG/ALBUTEROL 2.5MG INH SOL UD 3ML (DUONEB)(J7620) NEB SCH ×3 (08:00→19:20)
[2019-07-19 08:05] LABS: ALBUMIN 3.1 GM/DL (3.2-5.2); ALT/SGPT 16 U/L (12-78); BILIRUBIN,TOTAL 0.4 MG/DL (0.2-1.0); BLOOD UREA NITROGEN 16 MG/DL (7-18); CALCIUM LEVEL 9.8 MG/DL (8.8-10.2); CARBON DIOXIDE LEVEL 34 MEQ/L (21-32); CHLORIDE LEVEL 101 MEQ/L (98-107); CREATININE FOR GFR 0.74 MG/DL (0.55-1.30); GLOMERULAR FILTRATION RATE > 60.0 (>39); GLUCOSE, FASTING 110 MG/DL (70-100); POTASSIUM SERUM 3.4 MEQ/L (3.5-5.1); SODIUM LEVEL 140 MEQ/L (136-145); TOTAL PROTEIN 7.9 GM/DL (6.4-8.2)
[2019-07-19 09:00] VITALS: BP 152/72
[2019-07-19] MEDS: MELOXICAM (MOBIC) 7.5 MG TAB PO SCH (09:36)
[2019-07-19] MEDS: ATORVASTATIN 20 MG TAB PO SCH (09:36)
[2019-07-19] MEDS: FIBER-CON 625 MG TAB PO SCH ×2 (09:36→21:00)
[2019-07-19] MEDS: VITAMIN B COMPLEX/VIT C CAP PO SCH (09:36)
[2019-07-19] MEDS: VITAMIN D 1,000 INTERNATIONAL UNITS TABLET PO SCH (09:36)
[2019-07-19] MEDS: MULTIVITAMINS/MINERALS THERAP 1 TAB PO SCH (09:36)
[2019-07-19] MEDS: ASPIRIN 81 MG CHEW TABLET PO SCH (09:36)
[2019-07-19] MEDS: LACTOBACILLUS ACIDOPHILUS CAP (BACID) PO SCH ×3 (09:36→21:35)
[2019-07-19] MEDS: LOSARTAN 50 MG TAB PO SCH (09:36)
[2019-07-19] MEDS: OYSTER SHELL CALCIUM 500 MG TAB PO SCH (09:37)
[2019-07-19] MEDS: FLUTICASONE PROP 0.05% NASAL SPRAY 16 GM (FLONASE) NARES SCH (09:37)
[2019-07-19] MEDS: METOPROLOL SUCC (TopROL XL) 100MG *XL* TAB PO SCH (09:37)
[2019-07-19] MEDS: HEPARIN SOD (PORCINE) 5000 UNITS/ML VIAL (J1644 PER 1000UNITS) SC SCH ×2 (09:37→21:34)
[2019-07-19] MEDS: NYSTATIN 100,000 UNITS/GM TOPICAL PWD 15 GM TOP SCH ×2 (09:38→21:37)
[2019-07-19] MEDS: hydroCHLOROthiazide 25 MG TAB PO SCH (09:44)
[2019-07-19 14:00] VITALS: BP 143/80
[2019-07-19 21:00] VITALS: BP 145/68
[2019-07-19] MEDS: traZODone 25MG PER 1/2 TABLET PO SCH (22:43)
[2019-07-20] MEDS: AMPICILLIN SOD 2 GM in D5W MINI-BAG PLUS 100 ML IV SCH ×6 (02:09→21:48)
[2019-07-20] MEDS: SODIUM CHLORIDE 0.9% INJ 10 ML SYR IV PRN ×2 (02:10→10:57)
[2019-07-20] MEDS: SODIUM CHLORIDE 0.9% INJ 10 ML SYR IV SCH ×2 (05:58→18:57)
[2019-07-20 06:00] VITALS: BP 131/60
[2019-07-20 07:40] LABS: HEMATOCRIT 33.1 % (36.0-47.0); HEMOGLOBIN 10.4 g/dl (12.0-15.5); MEAN CORPUSCULAR HEMOGLOBIN 28.4 pg (27.0-33.0); MEAN CORPUSCULAR HGB CONC 31.4 g/dl (32.0-36.5); MEAN CORPUSCULAR VOLUME 90.4 fl (80.0-96.0); PLATELET COUNT, AUTOMATED 271 10^3/uL (150-450); RED BLOOD COUNT 3.66 10^6/uL (4.00-5.40); WHITE BLOOD COUNT 9.8 10^3/uL (4.0-10.0)
[2019-07-20] MEDS: IPRATROPIUM 0.5MG/ALBUTEROL 2.5MG INH SOL UD 3ML (DUONEB)(J7620) NEB SCH ×3 (08:02→19:34)
[2019-07-20 08:03] LABS: ALBUMIN 2.9 GM/DL (3.2-5.2); ALT/SGPT 12 U/L (12-78); BILIRUBIN,TOTAL 0.3 MG/DL (0.2-1.0); BLOOD UREA NITROGEN 16 MG/DL (7-18); CALCIUM LEVEL 9.4 MG/DL (8.8-10.2); CARBON DIOXIDE LEVEL 34 MEQ/L (21-32); CHLORIDE LEVEL 103 MEQ/L (98-107); GLOMERULAR FILTRATION RATE > 60.0 (>39); GLUCOSE, FASTING 113 MG/DL (70-100); POTASSIUM SERUM 3.6 MEQ/L (3.5-5.1); SODIUM LEVEL 139 MEQ/L (136-145); TOTAL PROTEIN 7.1 GM/DL (6.4-8.2)
[2019-07-20] MEDS: LACTOBACILLUS ACIDOPHILUS CAP (BACID) PO SCH ×3 (10:51→21:46)
[2019-07-20] MEDS: METOPROLOL SUCC (TopROL XL) 100MG *XL* TAB PO SCH (10:52)
[2019-07-20] MEDS: LOSARTAN 50 MG TAB PO SCH (10:53)
[2019-07-20] MEDS: VITAMIN B COMPLEX/VIT C CAP PO SCH (10:53)
[2019-07-20] MEDS: MELOXICAM (MOBIC) 7.5 MG TAB PO SCH (10:53)
[2019-07-20] MEDS: ATORVASTATIN 20 MG TAB PO SCH (10:53)
[2019-07-20] MEDS: HEPARIN SOD (PORCINE) 5000 UNITS/ML VIAL (J1644 PER 1000UNITS) SC SCH ×2 (10:54→21:45)
[2019-07-20] MEDS: MULTIVITAMINS/MINERALS THERAP 1 TAB PO SCH (10:55)
[2019-07-20] MEDS: VITAMIN D 1,000 INTERNATIONAL UNITS TABLET PO SCH (10:55)
[2019-07-20] MEDS: OYSTER SHELL CALCIUM 500 MG TAB PO SCH (10:55)
[2019-07-20] MEDS: ASPIRIN 81 MG CHEW TABLET PO SCH (10:55)
[2019-07-20] MEDS: FIBER-CON 625 MG TAB PO SCH ×2 (10:55→21:00)
[2019-07-20] MEDS: hydroCHLOROthiazide 25 MG TAB PO SCH (10:55)
[2019-07-20] MEDS: FLUTICASONE PROP 0.05% NASAL SPRAY 16 GM (FLONASE) NARES SCH (10:56)
[2019-07-20] MEDS: NYSTATIN 100,000 UNITS/GM TOPICAL PWD 15 GM TOP SCH ×2 (10:57→21:47)
[2019-07-20 14:00] VITALS: BP 140/63
[2019-07-20] MEDS: traZODone 25MG PER 1/2 TABLET PO SCH (21:46)
[2019-07-20 22:00] VITALS: BP 139/69
[2019-07-21] MEDS: diphenhydrAMINE 50 MG CAP PO PRN ×2 (01:40→22:18)
[2019-07-21] MEDS: AMPICILLIN SOD 2 GM in D5W MINI-BAG PLUS 100 ML IV SCH ×6 (01:40→22:20)
[2019-07-21] MEDS: SODIUM CHLORIDE 0.9% INJ 10 ML SYR IV PRN (03:02)
[2019-07-21 06:00] VITALS: BP 134/60
[2019-07-21] MEDS: SODIUM CHLORIDE 0.9% INJ 10 ML SYR IV SCH ×2 (06:38→17:10)
[2019-07-21 07:25] LABS: HEMATOCRIT 36.5 % (36.0-47.0); HEMOGLOBIN 11.5 g/dl (12.0-15.5); MEAN CORPUSCULAR HEMOGLOBIN 28.8 pg (27.0-33.0); MEAN CORPUSCULAR HGB CONC 31.5 g/dl (32.0-36.5); MEAN CORPUSCULAR VOLUME 91.3 fl (80.0-96.0); PLATELET COUNT, AUTOMATED 306 10^3/uL (150-450); WHITE BLOOD COUNT 9.9 10^3/uL (4.0-10.0)
[2019-07-21] MEDS: IPRATROPIUM 0.5MG/ALBUTEROL 2.5MG INH SOL UD 3ML (DUONEB)(J7620) NEB SCH ×3 (07:47→19:31)
[2019-07-21 07:53] LABS: ALBUMIN 3.1 GM/DL (3.2-5.2); ALT/SGPT 15 U/L (12-78); BILIRUBIN,TOTAL 0.3 MG/DL (0.2-1.0); BLOOD UREA NITROGEN 18 MG/DL (7-18); C REACTIVE PROTEIN QUANTITATIV 2.79 MG/DL (0.00-0.30); CALCIUM LEVEL 9.7 MG/DL (8.8-10.2); CARBON DIOXIDE LEVEL 33 MEQ/L (21-32); CHLORIDE LEVEL 101 MEQ/L (98-107); CREATININE FOR GFR 0.73 MG/DL (0.55-1.30); GLOMERULAR FILTRATION RATE > 60.0 (>39); GLUCOSE, FASTING 100 MG/DL (70-100); POTASSIUM SERUM 3.9 MEQ/L (3.5-5.1); SODIUM LEVEL 139 MEQ/L (136-145); TOTAL PROTEIN 7.9 GM/DL (6.4-8.2)
[2019-07-21 08:03] LABS: ERYTHROCYTE SEDIMENTATION RATE 84 mm/hr (0-30)
[2019-07-21] MEDS: MELOXICAM (MOBIC) 7.5 MG TAB PO SCH (09:18)
[2019-07-21] MEDS: hydroCHLOROthiazide 25 MG TAB PO SCH (09:18)
[2019-07-21] MEDS: ASPIRIN 81 MG CHEW TABLET PO SCH (09:18)
[2019-07-21] MEDS: VITAMIN D 1,000 INTERNATIONAL UNITS TABLET PO SCH (09:18)
[2019-07-21] MEDS: HEPARIN SOD (PORCINE) 5000 UNITS/ML VIAL (J1644 PER 1000UNITS) SC SCH ×2 (09:18→22:19)
[2019-07-21] MEDS: VITAMIN B COMPLEX/VIT C CAP PO SCH (09:18)
[2019-07-21] MEDS: LOSARTAN 50 MG TAB PO SCH (09:18)
[2019-07-21] MEDS: MULTIVITAMINS/MINERALS THERAP 1 TAB PO SCH (09:18)
[2019-07-21] MEDS: ATORVASTATIN 20 MG TAB PO SCH (09:19)
[2019-07-21] MEDS: NYSTATIN 100,000 UNITS/GM TOPICAL PWD 15 GM TOP SCH ×2 (09:19→22:21)
[2019-07-21] MEDS: FIBER-CON 625 MG TAB PO SCH ×2 (09:19→22:18)
[2019-07-21] MEDS: OYSTER SHELL CALCIUM 500 MG TAB PO SCH (09:19)
[2019-07-21] MEDS: METOPROLOL SUCC (TopROL XL) 100MG *XL* TAB PO SCH (09:19)
[2019-07-21] MEDS: LACTOBACILLUS ACIDOPHILUS CAP (BACID) PO SCH ×3 (09:19→22:18)
[2019-07-21] MEDS: FLUTICASONE PROP 0.05% NASAL SPRAY 16 GM (FLONASE) NARES SCH (09:20)
[2019-07-21] MEDS: CEPACOL LOZENGE PO PRN (13:58)
[2019-07-21 14:00] VITALS: BP 125/64
[2019-07-21] MEDS: LOPERAMIDE 2 MG CAPLET PO PRN (17:10)
[2019-07-21 21:00] VITALS: BP 168/78
[2019-07-21] MEDS: traZODone 25MG PER 1/2 TABLET PO SCH (22:18)
[2019-07-22] MEDS: AMPICILLIN SOD 2 GM in D5W MINI-BAG PLUS 100 ML IV SCH ×6 (02:12→21:45)
[2019-07-22] MEDS: SODIUM CHLORIDE 0.9% INJ 10 ML SYR IV PRN ×2 (02:51→21:45)
[2019-07-22 05:55] VITALS: BP 167/75
[2019-07-22] MEDS: SODIUM CHLORIDE 0.9% INJ 10 ML SYR IV SCH ×2 (06:22→18:39)
[2019-07-22] MEDS: IPRATROPIUM 0.5MG/ALBUTEROL 2.5MG INH SOL UD 3ML (DUONEB)(J7620) NEB SCH ×4 (07:00→19:34)
[2019-07-22] MEDS: MULTIVITAMINS/MINERALS THERAP 1 TAB PO SCH (08:50)
[2019-07-22] MEDS: MELOXICAM (MOBIC) 7.5 MG TAB PO SCH (08:50)
[2019-07-22] MEDS: VITAMIN D 1,000 INTERNATIONAL UNITS TABLET PO SCH (08:50)
[2019-07-22] MEDS: ASPIRIN 81 MG CHEW TABLET PO SCH (08:50)
[2019-07-22] MEDS: VITAMIN B COMPLEX/VIT C CAP PO SCH (08:50)
[2019-07-22] MEDS: FIBER-CON 625 MG TAB PO SCH ×2 (08:51→21:44)
[2019-07-22] MEDS: METOPROLOL SUCC (TopROL XL) 100MG *XL* TAB PO SCH (08:51)
[2019-07-22] MEDS: LACTOBACILLUS ACIDOPHILUS CAP (BACID) PO SCH ×3 (08:51→21:44)
[2019-07-22] MEDS: ATORVASTATIN 20 MG TAB PO SCH (08:52)
[2019-07-22] MEDS: OYSTER SHELL CALCIUM 500 MG TAB PO SCH (08:52)
[2019-07-22] MEDS: LOSARTAN 50 MG TAB PO SCH (08:52)
[2019-07-22] MEDS: hydroCHLOROthiazide 25 MG TAB PO SCH (08:52)
[2019-07-22] MEDS: NYSTATIN 100,000 UNITS/GM TOPICAL PWD 15 GM TOP SCH ×2 (09:00→21:44)
[2019-07-22] MEDS: FLUTICASONE PROP 0.05% NASAL SPRAY 16 GM (FLONASE) NARES SCH (09:00)
[2019-07-22] MEDS: HEPARIN SOD (PORCINE) 5000 UNITS/ML VIAL (J1644 PER 1000UNITS) SC SCH ×2 (09:00→21:44)
[2019-07-22] MEDS ORDERED: MELO15TA28 PO (10:47)
[2019-07-22] MEDS ORDERED: ASPI81CH8 PO (10:48)
[2019-07-22] MEDS ORDERED: RISATAB3 PO (10:48)
[2019-07-22] MEDS ORDERED: METO1TAB33 PO (10:48)
[2019-07-22] MEDS ORDERED: FLUTISP NARES (10:48)
[2019-07-22] MEDS ORDERED: ATOR40TA75 PO (10:48)
[2019-07-22] MEDS ORDERED: LOSA100T5 PO (10:48)
[2019-07-22 14:00] VITALS: BP 138/66
--- NOTE | 2019-07-22 14:34 | IPNPDOC ---
PM&R Progress Note DATE OF SERVICE: Jul 21, 2019 Research Intern Progress Note Subjective: Patient reporting she developed a full body rash over the weekend, stating she thinks it was a reaction to the CHG baths which has improved since its discontinuation. She otherwise states she is feeling fine and the benadryl is helping. REVIEW OF SYSTEMS: The following is a completed review of systems and has been reviewed. Review of systems otherwise unremarkable. PAIN: Patient self reports no pain EYES: No recent vision changes EARS, NOSE, & THROAT: No throat pain, or dysphagia, or rhinorrhea CARDIOVASCULAR: Denies chest pain or palpitations PULMONARY: Denies shortness of breath, +cough GASTROINTESTINAL: +diarrhea (improving) GENITOURINARY:denies dysuria MUSCULOSKELETAL: generalized weakness NEUROLOGICAL: denies tremor or focal weakness HEMATOLOGICAL: denies easy bruising SKIN: + abdominal rash PSYCHIATRIC: Unremarkable All other review of systems found to be negative. PHYSICAL EXAMINATION: VITAL SIGNS: Please see below. GENERAL: Pleasant and cooperative. No acute distress. +obese HEENT: PERRL. Extraocular movements intact. Clear conjunctiva CARDIOVASCULAR: Regular rate and rhythm. No murmurs, rubs, or gallops LUNGS: Clear to auscultation bilaterally. No wheezes. No rhonchi. ABDOMEN: [oft, nontender, nondistended. Positive bowel sounds. Normal active bowel sounds NEUROLOGICAL: Alert and oriented times three. Cranial nerves II through XII grossly intact. Sensation grossly intact (-) babniksi and Hoffmans bilat EXTREMITIES: 5\5 strength bilateral upper extremities. 5\5 strength right lower extremity. 5/5 strength in left lower extremity. SKIN: abdominal scattered papules jus under breast line, scattered seborrheic keratosis, RUE PICC, low back ecchymosis -diffuse erythematous skin with papules ASSESSMENT:68-year-old F with past medical history of HTN, meningitis who presents status post recurrent meningitis PLAN: 1. Rehab- PT/OT advance gait training, high level balance, ADLs, strengthen/stretch/maintain ROM all 4 limbs 2. Neuro: patient currently being treated for meningitis, blood cx, CSF, and urine cx negative however antibiotics started prior to tests being drawn -c/u IV ampicillin until 07-28-19 per [place]'s recs, Dr. Newman consulted, will try to obtain CSF from [place], waiting results, c/u to trend CRP/ESR 3. Cardiac: hx of HTN c/u metoprolol, Losartan-HCTZ, medicine consulted to assist in management -HLD c/u statin -c/u ASA for cardio-protection 4. Resp: hx of asthma c/u Duonebs, patient encouraged to do the breathing treatments for worsening cough, c/u cough drops- will or resp panel -encourage incentive spirometry, monitor for infection -KALEB with CPAP at home, machine broken, c/u nocturnal 02 5. GI ppx: protonix- hold bowel meds and consider checking C diff if loose stools do not subside 6. DVT ppx: heparin and TEDs 7. : monitor PVRs, voiding well 8. Pain: tylneol, and meloxicam 9. DIspo: 07-23-19 to home, progressing towards goals Allergies Coded Allergies: No Known Drug Allergies (Verified Allergy, Unknown, 07/15/19) Vital Signs Vital Signs Date Time Temp Pulse Resp B/P (MAP) Pulse Ox O2 Delivery O2 Flow Rate FiO2 07/22/19 08:51 100 148/66 07/22/19 05:55 97.7 18 96 07/21/19 21:00 Room Air 07/21/19 06:00 1.0 Microbiology Microbiology 07/21/19 Respiratory Virus Panel (PCR) (CRISTAL) - Final, Complete Current Medications Current Medications Current Medications Medications (Trade) Dose Ordered Sig/Danielle Route PRN Reason Start Time Stop Time Status Last Admin Dose Admin Acetaminophen (Tylenol Tab) 650 mg Q4HP PRN PO fever/MILD PAIN (PS 1-4) 07/15/19 18:30 Albuterol/ Ipratropium (Duoneb (Ipr 0.5mg/Alb 2.5mg)) 3 ml RQID NEB 07/21/19 20:00 07/22/19 11:06 Albuterol/ Ipratropium (Duoneb (Ipr 0.5mg/Alb 2.5mg)) 3 ml RTID NEB 07/16/19 20:00 07/21/19 14:05 DC 07/21/19 13:20 Ampicillin Sodium 2 gm/Dextrose 100 ml @ 200 mls/hr Q4H IV 07/15/19 22:00 07/28/19 23:00 07/22/19 06:21 Aspirin (Aspirin Chewable) 81 mg DAILY PO 07/16/19 09:00 07/22/19 08:50 Atorvastatin Calcium (Lipitor) 40 mg DAILY PO 07/16/19 09:00 07/22/19 08:52 Calcium Polycarbophil (Fiber Con) 1 ea BID PO 07/16/19 21:00 07/22/19 08:51 Calcium Carbonate (Oscal) 500 mg DAILY PO 07/16/19 09:00 07/22/19 08:52 Cetylpyridinium Chloride (Cepacol) 1 jack Q2HP PRN PO SORE THROAT 07/21/19 11:45 07/21/19 13:58 Diphenhydramine HCl (Benadryl) 50 mg Q8HP PRN PO ITCHING 07/21/19 01:00 07/21/19 22:18 Docusate Sodium (Colace) 100 mg BID PO 07/15/19 21:00 07/16/19 17:42 DC Fluticasone Propionate (Flonase 0.05% Nasal [place]) 2 spray DAILY NARES 07/16/19 21:00 07/21/19 09:20 Heparin Sodium (Heparin (Flush)) 200 units ASDIRECTED PRN IV SEE LABEL COMMENTS 07/15/19 23:30 07/22/19 02:51 Heparin Sodium (Heparin (Flush)) 200 units PICC IV 07/16/19 06:00 07/22/19 06:22 Heparin Sodium (Porcine) (Heparin) 5,000 units Q12H SC 07/15/19 21:00 07/21/19 22:19 Home Med (Med Rec Complete!) ASDIRECTED XX 07/15/19 20:30 07/15/19 20:29 DC Hydrochlorothiazide (Hydrodiuril) 25 mg DAILY PO 07/16/19 09:00 07/22/19 08:52 Lactobacillus Acidophilus (Bacid) 1 ea TID PO 07/15/19 21:00 07/22/19 08:51 Loperamide HCl (Imodium) 2 mg ASDIRECTED PRN PO DIARRHEA 07/18/19 16:45 07/21/19 17:10 Losartan Potassium (Cozaar) 100 mg DAILY PO 07/16/19 09:00 07/22/19 08:52 Magnesium Hydroxide (Milk Of Magnesia) 30 ml DAILYPRN PRN PO CONSTIPATION 07/15/19 18:30 Magnesium Oxide (Mag-Ox) 400 mg DAILY PO 07/16/19 09:00 07/18/19 16:42 DC 07/18/19 10:03 Meloxicam (Mobic) 15 mg DAILY PO 07/16/19 09:00 07/22/19 08:50 Metoprolol Succinate (TopROL XL) 100 mg DAILY PO 07/16/19 09:00 07/22/19 08:51 Miscellaneous (Unresolved Clarification Entry) SEE LABEL COMMENTS DAILY XX 07/20/19 09:00 07/20/19 12:18 DC Multivitamins (Theragram-M) 1 tab DAILY PO 07/16/19 09:00 07/22/19 08:50 Nystatin (Mycostatin Powder, Nystop) 1 dose BID TOP 07/17/19 21:00 07/21/19 22:21 Pantoprazole Sodium (Protonix) 40 mg DAILY PO 07/16/19 09:00 07/18/19 16:42 DC 07/18/19 10:04 Senna (Senokot) 1 tab QHS PO 07/15/19 21:00 07/16/19 17:42 DC Sodium Chloride (Saline Lock Flush) 10 ml ASDIRECTED PRN IV SEE LABEL COMMENTS 07/15/19 23:30 07/22/19 02:51 Sodium Chloride (Saline Lock Flush) 10 ml PICC IV 07/16/19 06:00 07/22/19 06:22 Trazodone HCl (Desyrel) 25 mg QHS PO 07/16/19 21:00 07/21/19 22:18 Vitamin B Complex/ Vitamin C (Therapeutic B Complex w/C) 1 cap DAILY PO 07/16/19 09:00 07/22/19 08:50 Vitamin D (Vitamin D) 1,000 units DAILY PO 07/16/19 09:00 07/22/19 08:50 SHELLY NGUYEN MD Jul 22, 2019 14:34
--- NOTE | 2019-07-22 14:39 | IPNPDOC ---
PM&R Progress Note DATE OF SERVICE: Jul 22, 2019 Commercial Subcontractor Progress Note Subjective: Patient reporting her cough has greatly improved since getting the breathing treatments more regularly and taking the cough drops. She is agreeable to trial of some lasix for her LE edema. REVIEW OF SYSTEMS: The following is a completed review of systems and has been reviewed. Review of systems otherwise unremarkable. PAIN: Patient self reports no pain EYES: No recent vision changes EARS, NOSE, & THROAT: No throat pain, or dysphagia, or rhinorrhea CARDIOVASCULAR: Denies chest pain or palpitations PULMONARY: Denies shortness of breath, +cough (improved) GASTROINTESTINAL: +diarrhea (improving) GENITOURINARY:denies dysuria MUSCULOSKELETAL: generalized weakness NEUROLOGICAL: denies tremor or focal weakness HEMATOLOGICAL: denies easy bruising SKIN: + abdominal rash PSYCHIATRIC: Unremarkable All other review of systems found to be negative. PHYSICAL EXAMINATION: VITAL SIGNS: Please see below. GENERAL: Pleasant and cooperative. No acute distress. +obese HEENT: PERRL. Extraocular movements intact. Clear conjunctiva CARDIOVASCULAR: Regular rate and rhythm. No murmurs, rubs, or gallops LUNGS: Clear to auscultation bilaterally. No wheezes. No rhonchi. ABDOMEN: [oft, nontender, nondistended. Positive bowel sounds. Normal active bowel sounds NEUROLOGICAL: Alert and oriented times three. Cranial nerves II through XII grossly intact. Sensation grossly intact (-) babniksi and Hoffmans bilat EXTREMITIES: 5\5 strength bilateral upper extremities. 5\5 strength right lower extremity. 5/5 strength in left lower extremity. SKIN: abdominal scattered papules jus under breast line, scattered seborrheic keratosis, RUE PICC, low back ecchymosis -diffuse erythematous skin with papules (improving) ASSESSMENT:68-year-old F with past medical history of HTN, meningitis who presents status post recurrent meningitis PLAN: 1. Rehab- PT/OT advance gait training, high level balance, ADLs, stren gthen/stretch/maintain ROM all 4 limbs 2. Neuro: patient currently being treated for meningitis, blood cx, CSF, and urine cx negative however antibiotics started prior to tests being drawn -c/u IV ampicillin until 07-27-20 per [place]'s recs, Dr. Newman consulted, will try to obtain CSF from [place] the state, waiting results, c/u to trend CRP/ESR 3. Cardiac: hx of HTN c/u metoprolol, Losartan-HCTZ, will start lasix 20mg daily medicine consulted to assist in management -HLD c/u statin -c/u ASA for cardio-protection 4. Resp: hx of asthma c/u Duonebs, patient encouraged to do the breathing treatments for worsening cough, c/u cough drops- resp panel negative- symptoms greatly improved today -encourage incentive spirometry, monitor for infection -KALEB with CPAP at home, machine broken, c/u nocturnal 02 5. GI ppx: protonix- hold bowel meds- C diff negative 6. DVT ppx: heparin and TEDs 7. : monitor PVRs, voiding well 8. Pain: tylneol, and meloxicam 9. DIspo: 07-23-19 to home, progressing towards goals Allergies Coded Allergies: No Known Drug Allergies (Verified Allergy, Unknown, 07/15/19) Vital Signs Vital Signs Date Time Temp Pulse Resp B/P (MAP) Pulse Ox O2 Delivery O2 Flow Rate FiO2 07/22/19 08:51 100 148/66 07/22/19 05:55 97.7 18 96 07/21/19 21:00 Room Air 07/21/19 06:00 1.0 Microbiology Microbiology 07/21/19 Respiratory Virus Panel (PCR) (CRISTAL) - Final, Complete Current Medications Current Medications Current Medications Medications (Trade) Dose Ordered Sig/Danielle Route PRN Reason Start Time Stop Time Status Last Admin Dose Admin Acetaminophen (Tylenol Tab) 650 mg Q4HP PRN PO fever/MILD PAIN (PS 1-4) 07/15/19 18:30 Albuterol/ Ipratropium (Duoneb (Ipr 0.5mg/Alb 2.5mg)) 3 ml RQID NEB 07/21/19 20:00 07/22/19 11:06 Albuterol/ Ipratropium (Duoneb (Ipr 0.5mg/Alb 2.5mg)) 3 ml RTID NEB 07/16/19 20:00 07/21/19 14:05 DC 07/21/19 13:20 Ampicillin Sodium 2 gm/Dextrose 100 ml @ 200 mls/hr Q4H IV 07/15/19 22:00 07/28/19 23:00 07/22/19 06:21 Aspirin (Aspirin Chewable) 81 mg DAILY PO 07/16/19 09:00 07/22/19 08:50 Atorvastatin Calcium (Lipitor) 40 mg DAILY PO 07/16/19 09:00 07/22/19 08:52 Calcium Polycarbophil (Fiber Con) 1 ea BID PO 07/16/19 21:00 07/22/19 08:51 Calcium Carbonate (Oscal) 500 mg DAILY PO 07/16/19 09:00 07/22/19 08:52 Cetylpyridinium Chloride (Cepacol) 1 jack Q2HP PRN PO SORE THROAT 07/21/19 11:45 07/21/19 13:58 Diphenhydramine HCl (Benadryl) 50 mg Q8HP PRN PO ITCHING 07/21/19 01:00 07/21/19 22:18 Docusate Sodium (Colace) 100 mg BID PO 07/15/19 21:00 07/16/19 17:42 DC Fluticasone Propionate (Flonase 0.05% Nasal [place]) 2 spray DAILY NARES 07/16/19 21:00 07/21/19 09:20 Heparin Sodium (Heparin (Flush)) 200 units ASDIRECTED PRN IV SEE LABEL COMMENTS 07/15/19 23:30 07/22/19 02:51 Heparin Sodium (Heparin (Flush)) 200 units PICC IV 07/16/19 06:00 07/22/19 06:22 Heparin Sodium (Porcine) (Heparin) 5,000 units Q12H SC 07/15/19 21:00 07/21/19 22:19 Home Med (Med Rec Complete!) ASDIRECTED XX 07/15/19 20:30 07/15/19 20:29 DC Hydrochlorothiazide (Hydrodiuril) 25 mg DAILY PO 07/16/19 09:00 07/22/19 08:52 Lactobacillus Acidophilus (Bacid) 1 ea TID PO 07/15/19 21:00 07/22/19 08:51 Loperamide HCl (Imodium) 2 mg ASDIRECTED PRN PO DIARRHEA 07/18/19 16:45 07/21/19 17:10 Losartan Potassium (Cozaar) 100 mg DAILY PO 07/16/19 09:00 07/22/19 08:52 Magnesium Hydroxide (Milk Of Magnesia) 30 ml DAILYPRN PRN PO CONSTIPATION 07/15/19 18:30 Magnesium Oxide (Mag-Ox) 400 mg DAILY PO 07/16/19 09:00 07/18/19 16:42 DC 07/18/19 10:03 Meloxicam (Mobic) 15 mg DAILY PO 07/16/19 09:00 07/22/19 08:50 Metoprolol Succinate (TopROL XL) 100 mg DAILY PO 07/16/19 09:00 07/22/19 08:51 Miscellaneous (Unresolved Clarification Entry) SEE LABEL COMMENTS DAILY XX 07/20/19 09:00 07/20/19 12:18 DC Multivitamins (Theragram-M) 1 tab DAILY PO 07/16/19 09:00 07/22/19 08:50 Nystatin (Mycostatin Powder, Nystop) 1 dose BID TOP 07/17/19 21:00 07/21/19 22:21 Pantoprazole Sodium (Protonix) 40 mg DAILY PO 07/16/19 09:00 07/18/19 16:42 DC 07/18/19 10:04 Senna (Senokot) 1 tab QHS PO 07/15/19 21:00 07/16/19 17:42 DC Sodium Chloride (Saline Lock Flush) 10 ml ASDIRECTED PRN IV SEE LABEL COMMENTS 07/15/19 23:30 07/22/19 02:51 Sodium Chloride (Saline Lock Flush) 10 ml PICC IV 07/16/19 06:00 07/22/19 06:22 Trazodone HCl (Desyrel) 25 mg QHS PO 07/16/19 21:00 07/21/19 22:18 Vitamin B Complex/ Vitamin C (Therapeutic B Complex w/C) 1 cap DAILY PO 07/16/19 09:00 07/22/19 08:50 Vitamin D (Vitamin D) 1,000 units DAILY PO 07/16/19 09:00 07/22/19 08:50 SHELLY NGUYEN MD Jul 22, 2019 14:39
[2019-07-22] MEDS: FUROSEMIDE 20 MG TAB PO SCH (15:05)
[2019-07-22 20:00] VITALS: BP 149/74
[2019-07-22] MEDS: traZODone 25MG PER 1/2 TABLET PO SCH (21:44)
[2019-07-22] MEDS: diphenhydrAMINE 50 MG CAP PO PRN (22:03)
--- NOTE | 2019-07-22 23:45 | IPN ---
DATE: 07/22/2019 INFECTIOUS DISEASE PROGRESS NOTE Aditi is examined in her room. She is sitting up and feeling great and looking forward to going home. The barrier to her discharge involves getting her outpatient ampicillin infusion set up, otherwise she is doing great. No fever, chills, nausea, vomiting, abdominal pain. The rash under her breasts is improving, per the patient. PHYSICAL EXAMINATION: Vital signs: Temperature 98.4, pulse 86, respirations 18, blood pressure 138/66, mean arterial pressure (MAP) 90, pulse oximetry 98% on room air. Maximum temperature (T max) in the last 24 hours 98.4. Aditi is sitting up in her chair in no acute distress. Alert and oriented times three, pleasantly conversant. Head: Normocephalic, atraumatic. Moist mucous membranes. Neck: Supple. Heart: Regular rate and rhythm. No murmur, clicks, gallops. Lungs: Clear throughout. No wheezing, rhonchi, or rales. Abdomen: Obese, soft, nontender, nondistended. Positive bowel sounds. Extremities: 2+ pulses, 1+ pitting edema bilateral lower extremities. Able to move all extremities. No focal deficits. LABORATORY: WBC 9.9, hemoglobin and hematocrit 11.5 and 36.5, platelets 306. ESR up from 61 to 84, CRP is down from 3.59 a few days ago to 2.79 today. Sodium and potassium 139 and 3.9, BUN and creatinine 18 and 0.73. Respiratory panel on 07/21/2019 was negative. IMPRESSION AND PLAN: 1. Bacterial meningitis with negative culture. Cerebrospinal fluid (CSF) findings include leukocyte of 17,000 with 91% PMNs. The specimen was sent from [facility] to the [facility] to further identify the pathogen and culture, although she had already received antibiotics 24 hours prior to this being drawn. Recommend following up on these cultures. In the meanwhile, continue ampicillin, currently is day #16 of . We have made a call out to confirm outpatient setup approval for continuous infusion of ampicillin 12 grams IV every 24 hours with an end date of 07/27/2019. 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 2. Rash under breasts. Likely intertrigo and possible rene, being treated with Nystatin powder. She also has on the right foot, which is also being treated Eucerin. Continue moisturization of the hands and feet. From an infectious disease standpoint, Aditi can go home once cleared from primary team and her outpatient antibiotics are set up. Followup in the clinic within a week.
[2019-07-22] MEDS: CEPACOL LOZENGE PO PRN (23:47)
[2019-07-23] MEDS: AMPICILLIN SOD 2 GM in D5W MINI-BAG PLUS 100 ML IV SCH ×4 (02:11→12:59)
[2019-07-23] MEDS: SODIUM CHLORIDE 0.9% INJ 10 ML SYR IV PRN ×2 (02:11→09:30)
[2019-07-23 06:00] VITALS: BP 149/67
[2019-07-23] MEDS: SODIUM CHLORIDE 0.9% INJ 10 ML SYR IV SCH (06:04)
[2019-07-23] MEDS: IPRATROPIUM 0.5MG/ALBUTEROL 2.5MG INH SOL UD 3ML (DUONEB)(J7620) NEB SCH (07:22)
[2019-07-23] MEDS: ASPIRIN 81 MG CHEW TABLET PO SCH (09:31)
[2019-07-23] MEDS: VITAMIN B COMPLEX/VIT C CAP PO SCH (09:31)
[2019-07-23] MEDS: hydroCHLOROthiazide 25 MG TAB PO SCH (09:31)
[2019-07-23] MEDS: MULTIVITAMINS/MINERALS THERAP 1 TAB PO SCH (09:31)
[2019-07-23] MEDS: HEPARIN SOD (PORCINE) 5000 UNITS/ML VIAL (J1644 PER 1000UNITS) SC SCH (09:31)
[2019-07-23] MEDS: OYSTER SHELL CALCIUM 500 MG TAB PO SCH (09:31)
[2019-07-23 09:32] VITALS: BP 149/67
[2019-07-23] MEDS: ATORVASTATIN 20 MG TAB PO SCH (09:32)
[2019-07-23] MEDS: LOSARTAN 50 MG TAB PO SCH (09:32)
[2019-07-23] MEDS: VITAMIN D 1,000 INTERNATIONAL UNITS TABLET PO SCH (09:32)
[2019-07-23] MEDS: MELOXICAM (MOBIC) 7.5 MG TAB PO SCH (09:32)
[2019-07-23] MEDS: FIBER-CON 625 MG TAB PO SCH (09:32)
[2019-07-23] MEDS: METOPROLOL SUCC (TopROL XL) 100MG *XL* TAB PO SCH (09:32)
[2019-07-23] MEDS: LACTOBACILLUS ACIDOPHILUS CAP (BACID) PO SCH (09:33)
[2019-07-23] MEDS: FUROSEMIDE 20 MG TAB PO SCH (09:33)
[2019-07-23] MEDS: NYSTATIN 100,000 UNITS/GM TOPICAL PWD 15 GM TOP SCH (09:33)
[2019-07-23] MEDS: FLUTICASONE PROP 0.05% NASAL SPRAY 16 GM (FLONASE) NARES SCH (09:34)
--- NOTE | 2019-07-23 15:06 | PMRDS ---
DATE OF ADMISSION: 07/15/2019 DATE OF DISCHARGE: 07/23/2019 CHIEF COMPLAINT/DISCHARGE DIAGNOSIS: Meningitis. HISTORY OF PRESENT ILLNESS: 68F pmh HTN, HLD, OA, asthma, meningitis in 2009 presented to [facility] on 07-07-19 with nausea and vomiting, altered mental status and on exam had nuchal rigidity with photophobia. She was started on IV Ampicillin, Rochephin, and Vancomycin for sepsis thought to be due to meningitis and underwent an LP on 07-08-19 with CSF showing 1703 wbcs and 163 proteins. Blood, CSF, and urine cultures obtained on admission were all negative. CXR also showed bilateral lower lobe infiltrates. She continued her antibiotics and on day of discharge was told to just continue on Ampicillin for a total of 3 weeks, end date 07-28-19. She had impairments in mobility below her prior level of function and required assistance with ADL management as well. She was deemed medically appropriate for discharge to [facility] on 07-15-19. PAST MEDICAL HISTORY: As per HPI. HOSPITAL COURSE: The patient was admitted and enrolled in a comprehensive physical therapy (PT), occupational therapy (OT) program. She received 24-hour nursing supervision and weekly team meetings were held to discuss her progress. She was maintained on IV ampicillin per and Dr. Newman was consulted to assist in overall management. The patient's blood pressures were relatively well-controlled. She was started on a short-term course of Lasix for bilateral lower extremity edema. She also developed contact dermatitis thought to be due to the CHG bath which was discontinued and her symptoms gradually improved. The patient developed a mild cough which responded well to DuoNeb treatments and cough medications, respiratory panel was ultimately negative. She performed well in therapy and was deemed medically and functionally stable to return home with infusions. DISCHARGE MEDICATION: As per instructions. FUNCTIONAL HISTORY ON DISCHARGE: The patient was modified independent for all functional transfers, ambulation, bathing, dressing, toileting. Thank you for this referral.
== END 2019-07-23 13:40 | disposition home or self-care (01) | DRG 91 ==
LOC: M PM&R 19:20
PROVIDERS: ADMIT Physical Medicine & Rehabilitation; ATTEND Physical Medicine & Rehabilitation
DX: R26.89 Other abnormalities of gait and mobility (principal); G03.9 Meningitis, unspecified; R29.1 Meningismus; I10 Essential (primary) hypertension; E78.5 Hyperlipidemia, unspecified; M19.90 Unspecified osteoarthritis, unspecified site; R11.2 Nausea with vomiting, unspecified; R41.82 Altered mental status, unspecified; H53.149 Visual discomfort, unspecified; J45.909 Unspecified asthma, uncomplicated; G47.33 Obstructive sleep apnea (adult) (pediatric); R09.82 Postnasal drip; Z79.82 Long term (current) use of aspirin; Z79.899 Other long term (current) drug therapy; Z86.61 Personal history of infections of the central nervous system; R19.7 Diarrhea, unspecified; R53.1 Weakness; R60.0 Localized edema; L30.4 Erythema intertrigo

== ENCOUNTER → 2019-11-24 | Outpatient (REF) | payer MEDICARE, OTHER ==
[~2019-11-24] MED LIST changes: +ALLE180T33 PO; +AMPI2INJ18 IV; +ASPI81CH8 PO; +ASPI81TA26 PO; +ATOR40TA75 PO; +BLAC40CA PO; +CALC500T52 PO; +CEFT1INJ5 IV; +D31000TA2 PO; +EQL50TAB2 PO; +FLUTISP NARES; +LOSA100T5 PO; +LOVE1INJ SC; +MELO15TA28 PO; +METO1TAB33 PO; +POTA20TA6 PO; +PROT40IN4 IV; +RISATAB3 PO; +VANC1INJ IV; +VITA50005 PO; +VITMTA PO
[2019-11-24 13:24] LABS: ALBUMIN 3.8 GM/DL (3.2-5.2); BILIRUBIN,TOTAL 0.5 MG/DL (0.2-1.0); CREATININE FOR GFR 0.98 MG/DL (0.55-1.30); GLOMERULAR FILTRATION RATE 59.6 (>39); POTASSIUM SERUM 4.4 MEQ/L (3.5-5.1); TOTAL PROTEIN 7.9 GM/DL (6.4-8.2)
[2019-11-24 13:44] LABS: HEMOGLOBIN A1c 5.9 %
== END ==
LOC: M PLALAB 11:24
PROVIDERS: ATTEND Nurse Practitioner Family
DX: E88.81 Metabolic syndrome and other insulin resistance (principal)

== ENCOUNTER → 2020-05-03 | Outpatient (CLI) | payer MEDICARE, OTHER ==
--- NOTE | 2020-05-03 14:47 | REPMRS ---
Patient History No known family history of cancer. Took hormonal contraceptives for 2 years. Digital Woman Screen Mammo: May 03, 2020 - Exam #: [id number] Bilateral CC and MLO view(s) were taken. Technologist: Karlee Wiggins, Technologist Prior study comparison: April 28, 2019, bilateral digital woman screen mammo performed at [facility]. April 24, 2018, bilateral digital woman screen mammo performed at [facility]. April 23, 2017, digital woman screen mammo performed at [facility]. FINDINGS: The breast tissue is almost entirely fat. The Volpara volumetric breast density category is: A. There has been no change in the appearance of the mammogram from the prior studies. There is no interval development of dominant mass, architectural distortion, or grouped microcalcification typical of malignancy. 3-D tomosynthesis shows no additional findings. Assessment: BI-RADS/ACR category 1 mammogram. Negative Mammogram. Recommendation Routine screening mammogram of both breasts in 1 year (for women over age 40). This patient's [facility] Lifetime Breast Cancer RIsk is estimated at 5.7 %. This mammogram was interpreted with the aid of an FDA-approved computer-aided dectection system. Electronically Signed By: Isiah Mcconnell MD 05/03/20 [id number]
== END ==
LOC: M WHC 12:59
PROVIDERS: ATTEND Family Medicine
DX: Z12.31 Encounter for screening mammogram for malignant neoplasm of breast (principal); I10 Essential (primary) hypertension; Z92.0 Personal history of contraception

== ENCOUNTER → 2020-05-19 | Outpatient (REF) | payer MEDICARE, OTHER ==
[2020-05-19 14:39] LABS: ALBUMIN 3.5 GM/DL (3.2-5.2); ALT/SGPT 16 U/L (12-78); BILIRUBIN,TOTAL 0.5 MG/DL (0.2-1.0); BLOOD UREA NITROGEN 30 MG/DL (7-18); CALCIUM LEVEL 10.3 MG/DL (8.8-10.2); CARBON DIOXIDE LEVEL 34 MEQ/L (21-32); CHLORIDE LEVEL 104 MEQ/L (98-107); CHOLESTEROL LEVEL 141 MG/DL (<200); CHOLESTEROL RISK RATIO 2.238 (<5); CREATININE FOR GFR 0.89 MG/DL (0.55-1.30); GLOMERULAR FILTRATION RATE > 60.0 (>39); GLUCOSE, FASTING 91 MG/DL (70-100); HDL CHOLESTEROL 63 MG/DL (>40); LDL CHOLESTEROL 49 MG/DL (<100); NON-HDL-C 78 MG/DL; POTASSIUM SERUM 4.3 MEQ/L (3.5-5.1); SODIUM LEVEL 140 MEQ/L (136-145); TOTAL PROTEIN 7.7 GM/DL (6.4-8.2); TRIGLYCERIDES LEVEL 145 MG/DL (<150)
[2020-05-19 15:17] LABS: HEMOGLOBIN A1c 5.6 %
== END ==
LOC: M PLALAB 11:47
PROVIDERS: ATTEND Family Medicine
DX: I10 Essential (primary) hypertension (principal); E78.2 Mixed hyperlipidemia; R73.03 Prediabetes

== ENCOUNTER → 2020-11-23 | Outpatient (CLI) | payer MEDICARE, OTHER ==
[~2020-11-23] MED LIST changes: +ERGO500029 PO; -VITA50005 PO
[2020-11-23 14:42] LABS: BLOOD UREA NITROGEN 22 MG/DL (7-18); CALCIUM LEVEL 9.6 MG/DL (8.8-10.2); CARBON DIOXIDE LEVEL 30 MEQ/L (21-32); CHLORIDE LEVEL 104 MEQ/L (98-107); CREATININE FOR GFR 0.94 MG/DL (0.55-1.30); GLOMERULAR FILTRATION RATE > 60.0 (>39); GLUCOSE, FASTING 98 MG/DL (70-100); POTASSIUM SERUM 4.1 MEQ/L (3.5-5.1); SODIUM LEVEL 141 MEQ/L (136-145)
[2020-11-23 14:55] LABS: MALB URINE SIEMENS 24.9 MG/L; MAU/CREAT RATIO 20.7 MCG/MG (0.0-30.0)
[2020-11-23 15:44] LABS: HEMOGLOBIN A1c 5.6 %
== END ==
LOC: M PLALAB 11:02
PROVIDERS: ATTEND Nurse Practitioner Family
DX: R73.03 Prediabetes (principal); I10 Essential (primary) hypertension

== ENCOUNTER → 2021-02-09 | Outpatient (REF) | payer MEDICARE, OTHER ==
[2021-02-09 13:12] LABS: APPEARANCE, URINE HAZY (CLEAR); BACTERIA, URINE AUTO 2+ (NEGATIVE); BILIRUBIN, URINE AUTO NEGATIVE (NEGATIVE); BLOOD, URINE BLOOD NEGATIVE (NEGATIVE); COLOR, URINE YELLOW (YELLOW); GLUCOSE, URINE (UA) AUTO NEGATIVE (NEGATIVE); KETONE, URINE AUTO NEGATIVE (NEGATIVE); LEUKOCYTE ESTERASE, URINE AUTO NEGATIVE (NEGATIVE); MUCUS, URINE SMALL (NEGATIVE); NITRITE, URINE AUTO NEGATIVE (NEGATIVE); PROTEIN, URINE AUTO NEGATIVE (NEGATIVE); RBC, URINE AUTO 0 /HPF (0-3); SPECIFIC GRAVITY URINE AUTO 1.018 (1.002-1.035); SQUAMOUS EPITHELIAL CELL UR AU 1 /HPF (0-6); UROBILINOGEN, URINE AUTO 0.2 mg/dL (0.0-2.0); WBC, URINE AUTO 1 /HPF (0-3)
== END ==
LOC: M LAB REF 12:32
PROVIDERS: ATTEND Physician Assistant
DX: R30.0 Dysuria (principal)

== ENCOUNTER → 2021-05-04 | Outpatient (CLI) | payer MEDICARE, OTHER ==
--- NOTE | 2021-05-04 11:06 | REPMRS ---
Patient History The patient states she has not had a clinical breast exam in over a year. No known family history of cancer. Took hormonal contraceptives for 2 years. Tomosynthesis is performed. Volpara breast density is a. [facility] lifetime risk of breast cancer 5.4%. Patient states no breast complaints today. Patient has signed MRS History Sheet. Digital Woman Screen Mammo: May 04, 2021 - Exam #: [id number] Bilateral CC and MLO view(s) were taken. Technologist: Jeri Gonzalez, Technologist Prior study comparison: May 03, 2020, bilateral digital woman screen mammo performed at [facility]. April 28, 2019, bilateral digital woman screen mammo performed at [facility]. FINDINGS: There are scattered fibroglandular densities. There has been no change in the appearance of the mammogram from the prior studies. There is a mild amount of residual fibroglandular tissue which is fairly symmetric. There is no interval development of dominant mass, architectural distortion, or clustered microcalcification suggestive of malignancy. Assessment: BI-RADS/ACR category 1 mammogram. Negative Mammogram. Recommendation Routine screening mammogram in 1 year (for women over age 40). This mammogram was interpreted with the aid of an FDA-approved computer-aided dectection system. Electronically Signed By: Jeet Aguilar MD 05/04/21 [id number]
== END ==
LOC: M WHC 10:22
PROVIDERS: ATTEND Family Medicine
DX: Z12.31 Encounter for screening mammogram for malignant neoplasm of breast (principal)

== ENCOUNTER → 2021-08-24 | Outpatient (CLI) | payer MEDICARE, OTHER ==
[~2021-08-24] MED LIST changes: +AMPI2INJ IV; -AMPI2INJ18 IV; -D31000TA2 PO; +POTA-151 PO; -POTA20TA6 PO; +VITA100093 PO
[2021-08-24 13:44] LABS: ALBUMIN 3.7 GM/DL (3.2-5.2); ALT/SGPT 18 U/L (12-78); BILIRUBIN,TOTAL 0.4 MG/DL (0.2-1.0); BLOOD UREA NITROGEN 31 MG/DL (7-18); CALCIUM LEVEL 9.9 MG/DL (8.8-10.2); CARBON DIOXIDE LEVEL 33 MEQ/L (21-32); CHLORIDE LEVEL 104 MEQ/L (98-107); CHOLESTEROL LEVEL 137 MG/DL (<200); CHOLESTEROL RISK RATIO 2.322 (<5); CREATININE FOR GFR 0.92 MG/DL (0.55-1.30); GLOMERULAR FILTRATION RATE > 60.0 (>39); GLUCOSE, FASTING 89 MG/DL (70-100); HDL CHOLESTEROL 59 MG/DL (>40); LDL CHOLESTEROL 51 MG/DL (<100); NON-HDL-C 78 MG/DL; POTASSIUM SERUM 4.3 MEQ/L (3.5-5.1); SODIUM LEVEL 139 MEQ/L (136-145); TOTAL PROTEIN 7.6 GM/DL (6.4-8.2); TRIGLYCERIDES LEVEL 135 MG/DL (<150)
[2021-08-24 16:27] LABS: TOTAL 25(OH) VITAMIN D 45.6 NG/ML (30.0-100.0)
== END ==
LOC: M PLALAB 12:01
PROVIDERS: ATTEND Nurse Practitioner Family
DX: E55.9 Vitamin D deficiency, unspecified (principal); Z79.899 Other long term (current) drug therapy

== ENCOUNTER → 2021-09-17 | Outpatient (REF) | payer MEDICARE, OTHER ==
[2021-09-17 12:56] LABS: APPEARANCE, URINE HAZY (CLEAR); BACTERIA, URINE AUTO 2+ (NEGATIVE); BILIRUBIN, URINE AUTO NEGATIVE (NEGATIVE); BLOOD, URINE BLOOD NEGATIVE (NEGATIVE); COLOR, URINE AMBER (YELLOW); GLUCOSE, URINE (UA) AUTO NEGATIVE (NEGATIVE); KETONE, URINE AUTO NEGATIVE (NEGATIVE); LEUKOCYTE ESTERASE, URINE AUTO 1+ (NEGATIVE); MUCUS, URINE SMALL (NEGATIVE); NITRITE, URINE AUTO NEGATIVE (NEGATIVE); PROTEIN, URINE AUTO NEGATIVE (NEGATIVE); RBC, URINE AUTO 2 /HPF (0-3); SPECIFIC GRAVITY URINE AUTO 1.024 (1.002-1.035); SQUAMOUS EPITHELIAL CELL UR AU 5 /HPF (0-6); UROBILINOGEN, URINE AUTO 0.2 mg/dL (0.0-2.0); WBC, URINE AUTO 45 /HPF (0-3)
== END ==
LOC: M LAB REF 12:18
PROVIDERS: ATTEND Physician Assistant Medical
DX: R30.0 Dysuria (principal)

== ENCOUNTER → 2022-02-28 | Outpatient (CLI) | payer MEDICARE, OTHER ==
[2022-02-28 15:42] LABS: BASO # 0.1 10^3/uL (0.0-0.2); BASO % 0.6 % (0.0-1.0); EOS # 0.5 10^3/uL (0.0-0.5); EOS % 5.9 % (0.0-3.0); HEMATOCRIT 34.5 % (36.0-47.0); HEMOGLOBIN 10.6 g/dl (12.0-15.5); LYMPH # 1.9 10^3/uL (1.5-5.0); LYMPH % 21.1 % (24.0-44.0); MEAN CORPUSCULAR HEMOGLOBIN 28.3 pg (27.0-33.0); MEAN CORPUSCULAR HGB CONC 30.7 g/dl (32.0-36.5); MEAN CORPUSCULAR VOLUME 92.2 fl (80.0-96.0); MONO # 0.7 10^3/uL (0.0-0.8); MONO % 7.4 % (2.0-8.0); NEUTROPHILS # 5.8 10^3/uL (1.5-8.5); NEUTROPHILS % 64.6 % (36.0-66.0); PLATELET COUNT, AUTOMATED 353 10^3/uL (150-450); RED BLOOD COUNT 3.74 10^6/uL (4.00-5.40)
[2022-02-28 16:13] LABS: HEMOGLOBIN A1c 5.7 %
[2022-02-28 17:05] LABS: CREATININE FOR GFR 0.98 MG/DL (0.55-1.30)
[2022-02-28 17:06] LABS: ALBUMIN 3.6 GM/DL (3.2-5.2); BILIRUBIN,TOTAL 0.4 MG/DL (0.2-1.0); CALCIUM LEVEL 9.6 MG/DL (8.8-10.2); CHOLESTEROL RISK RATIO 2.183 (<5); GLOMERULAR FILTRATION RATE 59.2 (>39); POTASSIUM SERUM 4.6 MEQ/L (3.5-5.1); TOTAL PROTEIN 7.3 GM/DL (6.4-8.2)
== END ==
LOC: M PLALAB 12:21
PROVIDERS: ATTEND Physician Assistant
DX: E78.2 Mixed hyperlipidemia (principal); I10 Essential (primary) hypertension; E55.9 Vitamin D deficiency, unspecified

== ENCOUNTER → 2022-03-01 | Outpatient (REF) | payer MEDICARE, OTHER | LOC: M SFHCPLAZ 07:39 | PROVIDERS: ATTEND Physician Assistant | DX: D64.9 Anemia, unspecified (principal); Z53.8 Procedure and treatment not carried out for other reasons ==

== ENCOUNTER → 2022-05-05 | Outpatient (CLI) | payer MEDICARE, OTHER ==
[~2022-05-05] MED LIST changes: +NYAM10003 TOP; +PANT40TA29 PO; +SUCR1TA PO
== END ==
LOC: M WHC 09:05
PROVIDERS: ATTEND Physician Assistant
DX: Z12.31 Encounter for screening mammogram for malignant neoplasm of breast (principal); Z13.820 Encounter for screening for osteoporosis; N95.1 Menopausal and female climacteric states; M85.88 Other specified disorders of bone density and structure, other site

== ENCOUNTER → 2022-05-05 | Outpatient (CLI) | payer MEDICARE, OTHER ==
[2022-05-05 14:01] LABS: BASO % 0.4 % (0.0-1.0); EOS # 0.4 10^3/uL (0.0-0.5); EOS % 3.5 % (0.0-3.0); HEMATOCRIT 34.5 % (36.0-47.0); HEMOGLOBIN 10.4 g/dl (12.0-15.5); LYMPH % 18.5 % (24.0-44.0); MEAN CORPUSCULAR HEMOGLOBIN 27.4 pg (27.0-33.0); MEAN CORPUSCULAR HGB CONC 30.1 g/dl (32.0-36.5); MONO # 0.7 10^3/uL (0.0-0.8); MONO % 6.7 % (2.0-8.0); NEUTROPHILS # 7.6 10^3/uL (1.5-8.5); NEUTROPHILS % 70.5 % (36.0-66.0); PLATELET COUNT, AUTOMATED 413 10^3/uL (150-450); RED BLOOD COUNT 3.79 10^6/uL (4.00-5.40); WHITE BLOOD COUNT 10.8 10^3/uL (4.0-10.0)
[2022-05-05 14:21] LABS: PERCENT SATURATION 13.4 % (13.2-45.0)
[2022-05-05 14:25] LABS: FERRITIN 13.8 NG/ML (7.3-270.7)
== END ==
LOC: M PLALAB 09:59
PROVIDERS: ATTEND Physician Assistant
DX: D64.9 Anemia, unspecified (principal)

== ENCOUNTER 2022-05-21 23:50 | Emergency (ER) | payer MEDICARE, OTHER ==
[~2022-05-21 23:50] MED LIST changes: -NYAM10003 TOP; -PANT40TA29 PO; -SUCR1TA PO
[2022-05-22] MEDS ORDERED: fentaNYL 100 MCG/2 ML INJECTION IV ONE ×3 (00:15→01:45)
[2022-05-22 00:46] LABS: BASO # 0.1 10^3/uL (0.0-0.2); BASO % 0.4 % (0.0-1.0); EOS # 0.5 10^3/uL (0.0-0.5); EOS % 3.9 % (0.0-3.0); HEMATOCRIT 31.6 % (36.0-47.0); HEMOGLOBIN 9.6 g/dl (12.0-15.5); MEAN CORPUSCULAR HEMOGLOBIN 27.4 pg (27.0-33.0); MEAN CORPUSCULAR HGB CONC 30.4 g/dl (32.0-36.5); MEAN CORPUSCULAR VOLUME 90.3 fl (80.0-96.0); MONO # 1.1 10^3/uL (0.0-0.8); MONO % 8.5 % (2.0-8.0); NEUTROPHILS # 9.5 10^3/uL (1.5-8.5); NEUTROPHILS % 71.7 % (36.0-66.0); PLATELET COUNT, AUTOMATED 374 10^3/uL (150-450); WHITE BLOOD COUNT 13.2 10^3/uL (4.0-10.0)
[2022-05-22 00:49] LABS: LIPASE 24 U/L (12-53)
[2022-05-22 00:50] LABS: ETHYL ALCOHOL (ETHANOL) 0.003 % (0.000-0.010); INR 0.93; PROTHROMBIN TIME 12.7 SECONDS (12.5-14.5)
[2022-05-22 00:51] LABS: ALBUMIN 3.3 G/DL (3.2-5.2); ALKALINE PHOSPHATASE 62 U/L (46-116); ALT/SGPT < 9 U/L (7.0-40); AMYLASE 38 U/L (30-118); AST/SGOT 19 U/L (<34); BILIRUBIN,DIRECT < 0.1 MG/DL (<0.4); BILIRUBIN,TOTAL 0.2 MG/DL (0.3-1.2); CPK CREATINE PHOSPHOKINASE 53 U/L (34-145); PARTIAL THROMBOPLASTIN TIME 31.6 SECONDS (24.8-34.2); TOTAL PROTEIN 6.6 G/DL (5.7-8.2)
[2022-05-22 00:52] LABS: CK-MB VALUE MASS < 1.0 NG/ML (<3.6); MB/CK RELATIVE INDEX 1.88 (< OR =4)
[2022-05-22] MEDS ORDERED: MORPHINE 4 MG/ML 1ML VIAL IV ONE ×2 (01:20→06:45)
[2022-05-22] MEDS ORDERED: NS 1,000 ML IV ONE (01:30)
[2022-05-22] MEDS ORDERED: MIDAZOLAM INJ 2MG/2ML VIAL IV STA (01:38)
[2022-05-22] MEDS ORDERED: ISOVUE-370 76% 100ML VIAL As Ordered ONE (02:08)
[2022-05-22 04:58] LABS: RSV AMPLIFICATION NEGATIVE (NEGATIVE)
[2022-05-22 06:16] VITALS: BP 146/95
[2022-05-22] MEDS ORDERED: LIDOCAINE 2% 5ML JELLY UROJET TOP ONE (06:45)
== END 2022-05-22 07:23 | disposition short-term general hospital (02) ==
LOC: EDBD 23:50 → M ED 23:50
DX: S83.106A Unspecified dislocation of unspecified knee, initial encounter (principal); S82.142A Displaced bicondylar fracture of left tibia, initial encounter for closed fracture; S89.202A Unspecified physeal fracture of upper end of left fibula, initial encounter for closed fracture; W10.9XXA Fall (on) (from) unspecified stairs and steps, initial encounter; Y92.009 Unspecified place in unspecified non-institutional (private) residence as the place of occurrence of the external cause; I10 Essential (primary) hypertension; E78.5 Hyperlipidemia, unspecified; Z79.82 Long term (current) use of aspirin; Z79.899 Other long term (current) drug therapy
CPT/HCPCS: 27550; 36415; 51702; 70450; 71250; 72125; 72170; 73552; 73560; 73590; 73700; 73706; 80047; 80076; 82077; 82150; 82550; 82553; 83605; 83690; 84484; 85025; 85610; 85730; 86850; 86900; 86901; 87631; 93041; 94760; 96361; 96374; 96375; 96376; 99285; Q9967

== ENCOUNTER 2022-07-05 15:19 | Inpatient (IN) | payer MEDICARE, OTHER ==
[2022-07-05] VITALS (9 sets, daily range): BP systolic 100–135; BP diastolic 47–58
[~2022-07-05] VITALS: Ht 157.5 cm; Wt 123.7 kg
[2022-07-05 15:59] LABS: BASO % 0.3 % (0.0-1.0); EOS # 0.1 10^3/uL (0.0-0.5); EOS % 1.7 % (0.0-3.0); LYMPH # 1.2 10^3/uL (1.5-5.0); LYMPH % 16.3 % (24.0-44.0); MEAN CORPUSCULAR HEMOGLOBIN 25.1 pg (27.0-33.0); MEAN CORPUSCULAR HGB CONC 29.3 g/dl (32.0-36.5); MEAN CORPUSCULAR VOLUME 85.6 fl (80.0-96.0); MONO # 0.6 10^3/uL (0.0-0.8); MONO % 7.9 % (2.0-8.0); NEUTROPHILS # 5.5 10^3/uL (1.5-8.5); NEUTROPHILS % 73.3 % (36.0-66.0); PLATELET COUNT, AUTOMATED 449 10^3/uL (150-450); RED BLOOD COUNT 1.95 10^6/uL (4.00-5.40); WHITE BLOOD COUNT 7.4 10^3/uL (4.0-10.0)
[2022-07-05 16:00] LABS: HEMATOCRIT 16.7 % (36.0-47.0); HEMOGLOBIN 4.9 g/dl (12.0-15.5)
[2022-07-05] MEDS ORDERED: PANTOPRAZOLE 40MG VIAL IV ONE (16:15)
[2022-07-05] MEDS: NS 1,000 ML IV SCH ×2 (16:19→22:20)
[2022-07-05 16:26] LABS: LIPASE 21 U/L (12-53)
[2022-07-05 16:28] LABS: ALBUMIN 2.9 G/DL (3.2-5.2); ALKALINE PHOSPHATASE 62 U/L (46-116); ALT/SGPT 14 U/L (7.0-40); AST/SGOT 77 U/L (<34); BILIRUBIN,DIRECT 0.2 MG/DL (<0.4); BILIRUBIN,TOTAL 0.5 MG/DL (0.3-1.2); BLOOD UREA NITROGEN 46 MG/DL (9-23); CALCIUM LEVEL 8.9 MG/DL (8.3-10.6); CARBON DIOXIDE LEVEL 30 MMOL/L (20-31); CHLORIDE LEVEL 100 MMOL/L (98-107); CPK CREATINE PHOSPHOKINASE 608 U/L (34-145); CREATININE FOR GFR 0.93 MG/DL (0.55-1.30); GLOMERULAR FILTRATION RATE > 60.0 (>39); GLUCOSE, FASTING 101 MG/DL (74-106); MB/CK RELATIVE INDEX 1.15 (< OR =4); POTASSIUM SERUM 3.2 MMOL/L (3.5-5.1); SODIUM LEVEL 137 MMOL/L (136-145)
[2022-07-05] MEDS ORDERED: POTASSIUM CHLORIDE 10MEQ SR TABLET PO ONE (16:35)
[2022-07-05 16:36] LABS: RSV AMPLIFICATION NEGATIVE (NEGATIVE)
[2022-07-05] MEDS ORDERED: ISOVUE-370 76% 100ML VIAL As Ordered ONE (16:45)
[2022-07-05 16:50] LABS: INR 1.06
[2022-07-05 16:51] LABS: PARTIAL THROMBOPLASTIN TIME 21.9 SECONDS (24.8-34.2)
[2022-07-05] MEDS ORDERED: LOSA100T5 PO (19:13)
[2022-07-05] MEDS ORDERED: NYAM10003 TOP (19:13)
[2022-07-05] MEDS ORDERED: MORPHINE 2 MG/ML 1ML VIAL IV ONE (19:35)
[2022-07-05] MEDS ORDERED: HOME MED LIST COMPLETE! XX SCH (20:05)
[2022-07-05] MEDS ORDERED: PANTOPRAZOLE 40MG VIAL IV SCH (21:00)
[2022-07-05] MEDS ORDERED: NS 1,000 ML IV SCH (21:25)
[2022-07-05 22:25] LABS: THYROID STIMULATING HORMONE 1.031 uIU/ML (0.55-4.78)
[2022-07-05 22:35] LABS: IRON (FE) 10 UG/DL (50-170); TOTAL IRON BINDING CAPACITY 333 UG/DL (250-425)
[2022-07-05 22:38] LABS: FERRITIN 22.3 NG/ML (7.3-270.7)
[2022-07-05] MEDS: SUCRALFATE SUSP 1GM/10ML UD PO SCH (23:15)
[2022-07-06] VITALS (19 sets, daily range): BP systolic 95–159; BP diastolic 46–101
[2022-07-06 08:55] LABS: CPK CREATINE PHOSPHOKINASE 410 U/L (34-145)
[2022-07-06 08:56] LABS: BLOOD UREA NITROGEN 34 MG/DL (9-23); CALCIUM LEVEL 8.9 MG/DL (8.3-10.6); CARBON DIOXIDE LEVEL 27 MMOL/L (20-31); CHLORIDE LEVEL 102 MMOL/L (98-107); CREATININE FOR GFR 0.71 MG/DL (0.55-1.30); GLOMERULAR FILTRATION RATE > 60.0 (>39); GLUCOSE, FASTING 95 MG/DL (74-106); POTASSIUM SERUM 3.3 MMOL/L (3.5-5.1); SODIUM LEVEL 139 MMOL/L (136-145)
[2022-07-06] MEDS: NS 1,000 ML IV SCH ×3 (09:07→22:24)
[2022-07-06] MEDS: SUCRALFATE SUSP 1GM/10ML UD PO SCH ×4 (09:07→22:04)
[2022-07-06] MEDS: PANTOPRAZOLE 40MG TAB (PROTONIX) PO SCH ×2 (09:59→22:05)
[2022-07-06] MEDS: HYDROMORPHONE HCL 0.5 MG/ 0.5 ML SYRINGE IV PRN ×2 (19:41→23:21)
[2022-07-07] VITALS: BP 121/60
[2022-07-07 00:55] LABS: HEMATOCRIT 34.3 % (36.0-47.0)
[2022-07-07 01:21] LABS: HEMOGLOBIN 10.7 g/dl (12.0-15.5)
[2022-07-07] MEDS: NS 1,000 ML IV SCH (05:21)
[2022-07-07 05:34] LABS: HEMATOCRIT 29.7 % (36.0-47.0); HEMOGLOBIN 9.4 g/dl (12.0-15.5); MEAN CORPUSCULAR HEMOGLOBIN 26.9 pg (27.0-33.0); MEAN CORPUSCULAR HGB CONC 31.6 g/dl (32.0-36.5); MEAN CORPUSCULAR VOLUME 85.1 fl (80.0-96.0); PLATELET COUNT, AUTOMATED 330 10^3/uL (150-450); RED BLOOD COUNT 3.49 10^6/uL (4.00-5.40); WHITE BLOOD COUNT 7.8 10^3/uL (4.0-10.0)
[2022-07-07 06:10] LABS: BLOOD UREA NITROGEN 20 MG/DL (9-23); CALCIUM LEVEL 8.1 MG/DL (8.3-10.6); CARBON DIOXIDE LEVEL 26 MMOL/L (20-31); CHLORIDE LEVEL 105 MMOL/L (98-107); CREATININE FOR GFR 0.54 MG/DL (0.55-1.30); GLOMERULAR FILTRATION RATE > 60.0 (>39); GLUCOSE, FASTING 91 MG/DL (74-106); POTASSIUM SERUM 2.8 MMOL/L (3.5-5.1); SODIUM LEVEL 139 MMOL/L (136-145)
[2022-07-07] MEDS: POTASSIUM CHLORIDE 10% LIQ 20MEQ/15ML UDC PO SCH ×2 (06:32→08:31)
[2022-07-07 08:10] VITALS: BP 126/59
[2022-07-07] MEDS: PANTOPRAZOLE 40MG TAB (PROTONIX) PO SCH (08:31)
[2022-07-07] MEDS: SUCRALFATE SUSP 1GM/10ML UD PO SCH ×4 (08:31→23:07)
[2022-07-07 12:00] VITALS: BP 128/56
[2022-07-07 13:05] LABS: HEMATOCRIT 35.4 % (36.0-47.0); HEMOGLOBIN 11.1 g/dl (12.0-15.5)
[2022-07-07] MEDS: HYDROMORPHONE HCL 0.5 MG/ 0.5 ML SYRINGE IV PRN ×2 (13:32→22:13)
[2022-07-07] MEDS ORDERED: OCTREOTIDE ACETATE 1,200 MCG in NS 238.8 ML IV SCH (15:00)
[2022-07-07] MEDS: PANTOPRAZOLE SODIUM 40 MG in D5W 50 ML IV SCH ×2 (15:10→19:56)
[2022-07-07 16:30] VITALS: BP 111/66
[2022-07-07 22:00] VITALS: BP 127/75
[2022-07-08] MEDS: PANTOPRAZOLE SODIUM 40 MG in D5W 50 ML IV SCH ×2 (00:06→05:39)
[2022-07-08 06:00] VITALS: BP 130/74
[2022-07-08 06:31] LABS: HEMATOCRIT 33.9 % (36.0-47.0); HEMOGLOBIN 10.5 g/dl (12.0-15.5); MEAN CORPUSCULAR VOLUME 87.1 fl (80.0-96.0); PLATELET COUNT, AUTOMATED 339 10^3/uL (150-450); RED BLOOD COUNT 3.89 10^6/uL (4.00-5.40); WHITE BLOOD COUNT 7.5 10^3/uL (4.0-10.0)
[2022-07-08 06:44] LABS: BLOOD UREA NITROGEN 12 MG/DL (9-23); CALCIUM LEVEL 8.5 MG/DL (8.3-10.6); CARBON DIOXIDE LEVEL 29 MMOL/L (20-31); CHLORIDE LEVEL 104 MMOL/L (98-107); CREATININE FOR GFR 0.62 MG/DL (0.55-1.30); GLOMERULAR FILTRATION RATE > 60.0 (>39); GLUCOSE, FASTING 130 MG/DL (74-106); POTASSIUM SERUM 3.7 MMOL/L (3.5-5.1); SODIUM LEVEL 139 MMOL/L (136-145)
[2022-07-08] MEDS ORDERED: LIDOCAINE 2% 100MG/5ML SDV (FOR ANES.) As Ordered ONE (07:38)
[2022-07-08] MEDS ORDERED: propofoL 200 MG/20 ML VIAL As Ordered ONE ×2 (07:38→08:27)
[2022-07-08] MEDS ORDERED: ONDANSETRON 4MG 2ML VIAL IV PRN (08:40)
[2022-07-08] MEDS: SUCRALFATE 1 GM TAB PO SCH ×4 (10:13→21:31)
[2022-07-08] MEDS: PANTOPRAZOLE 40MG TAB (PROTONIX) PO SCH ×2 (10:13→21:31)
[2022-07-08] MEDS: POTASSIUM CHLORIDE 10MEQ SR TABLET PO SCH (10:14)
[2022-07-08 14:00] VITALS: BP 142/71
[2022-07-08 21:10] VITALS: BP 124/71
[2022-07-08] MEDS: HYDROMORPHONE HCL 0.5 MG/ 0.5 ML SYRINGE IV PRN (22:57)
[2022-07-09 06:00] VITALS: BP 128/61
[2022-07-09 06:16] LABS: HEMATOCRIT 33.2 % (36.0-47.0); MEAN CORPUSCULAR HEMOGLOBIN 26.5 pg (27.0-33.0); MEAN CORPUSCULAR HGB CONC 30.1 g/dl (32.0-36.5); MEAN CORPUSCULAR VOLUME 87.8 fl (80.0-96.0); PLATELET COUNT, AUTOMATED 341 10^3/uL (150-450); RED BLOOD COUNT 3.78 10^6/uL (4.00-5.40); WHITE BLOOD COUNT 7.7 10^3/uL (4.0-10.0)
[2022-07-09 06:39] LABS: BLOOD UREA NITROGEN 13 MG/DL (9-23); CALCIUM LEVEL 8.1 MG/DL (8.3-10.6); CARBON DIOXIDE LEVEL 29 MMOL/L (20-31); CHLORIDE LEVEL 105 MMOL/L (98-107); CREATININE FOR GFR 0.59 MG/DL (0.55-1.30); GLOMERULAR FILTRATION RATE > 60.0 (>39); GLUCOSE, FASTING 104 MG/DL (74-106); POTASSIUM SERUM 3.4 MMOL/L (3.5-5.1); SODIUM LEVEL 141 MMOL/L (136-145)
[2022-07-09] MEDS ORDERED: POTASSIUM CHLORIDE 10MEQ SR TABLET PO ONE (08:15)
[2022-07-09] MEDS: SUCRALFATE 1 GM TAB PO SCH ×4 (08:41→21:35)
[2022-07-09] MEDS: PANTOPRAZOLE 40MG TAB (PROTONIX) PO SCH ×2 (08:41→21:35)
[2022-07-09] MEDS: POTASSIUM CHLORIDE 10MEQ SR TABLET PO SCH (10:03)
[2022-07-09 14:00] VITALS: BP 136/68
[2022-07-10] MEDS: HYDROMORPHONE HCL 0.5 MG/ 0.5 ML SYRINGE IV PRN (00:14)
[2022-07-10 06:00] VITALS: BP 127/57
[2022-07-10 06:42] LABS: HEMATOCRIT 32.4 % (36.0-47.0); HEMOGLOBIN 9.8 g/dl (12.0-15.5); MEAN CORPUSCULAR HEMOGLOBIN 26.5 pg (27.0-33.0); MEAN CORPUSCULAR HGB CONC 30.2 g/dl (32.0-36.5); MEAN CORPUSCULAR VOLUME 87.6 fl (80.0-96.0); PLATELET COUNT, AUTOMATED 319 10^3/uL (150-450); WHITE BLOOD COUNT 6.8 10^3/uL (4.0-10.0)
[2022-07-10 07:04] LABS: BLOOD UREA NITROGEN 14 MG/DL (9-23); CARBON DIOXIDE LEVEL 27 MMOL/L (20-31); CHLORIDE LEVEL 104 MMOL/L (98-107); CREATININE FOR GFR 0.56 MG/DL (0.55-1.30); GLOMERULAR FILTRATION RATE > 60.0 (>39); GLUCOSE, FASTING 88 MG/DL (74-106); POTASSIUM SERUM 3.3 MMOL/L (3.5-5.1); SODIUM LEVEL 139 MMOL/L (136-145)
[2022-07-10] MEDS ORDERED: SUCR1TA PO (08:33)
[2022-07-10] MEDS ORDERED: PANT40TA29 PO (08:33)
[2022-07-10] MEDS: POTASSIUM CHLORIDE 10MEQ SR TABLET PO SCH (08:50)
[2022-07-10] MEDS: PANTOPRAZOLE 40MG TAB (PROTONIX) PO SCH (08:50)
[2022-07-10] MEDS: SUCRALFATE 1 GM TAB PO SCH (08:50)
[2022-07-15] MEDS ORDERED: PANTOPRAZOLE 40MG VIAL IV SCH (04:00)
== END 2022-07-10 10:58 | DRG 378 ==
LOC: EDBD 15:19 → M ED 15:19 → M ED INP 21:22 → M PCU 21:22 → ENRESERV 22:01 → CANRESERV 22:01 → ENRESERV 22:03 → M PCU 23:23 → M MSPAV 07-07 16:30
PROVIDERS: ADMIT Internal Medicine; ATTEND General Practice
PROC: 30233N1 Transfusion of Nonautologous Red Blood Cells into Peripheral Vein, Percutaneous Approach (ICD-10-PCS; principal; 2022-07-05)
PROC: 0DB78ZX Excision of Stomach, Pylorus, Via Natural or Artificial Opening Endoscopic, Diagnostic (ICD-10-PCS; 2022-07-08)
DX: K92.2 Gastrointestinal hemorrhage, unspecified (principal); D62 Acute posthemorrhagic anemia; K29.90 Gastroduodenitis, unspecified, without bleeding; K26.9 Duodenal ulcer, unspecified as acute or chronic, without hemorrhage or perforation; I10 Essential (primary) hypertension; E78.00 Pure hypercholesterolemia, unspecified; E87.6 Hypokalemia; Z79.82 Long term (current) use of aspirin; Z79.899 Other long term (current) drug therapy; Z20.822 Contact with and (suspected) exposure to COVID-19

== ENCOUNTER → 2022-07-18 | Outpatient (REF) ==
[~2022-07-18] MED LIST changes: +NYAM10003 TOP; +PANT40TA29 PO; +SUCR1TA PO
[2022-07-18 07:15] LABS: HEMATOCRIT 34.4 % (36.0-47.0); HEMOGLOBIN 10.3 g/dl (12.0-15.5); MEAN CORPUSCULAR HEMOGLOBIN 26.1 pg (27.0-33.0); MEAN CORPUSCULAR HGB CONC 29.9 g/dl (32.0-36.5); MEAN CORPUSCULAR VOLUME 87.1 fl (80.0-96.0); PLATELET COUNT, AUTOMATED 243 10^3/uL (150-450); RED BLOOD COUNT 3.95 10^6/uL (4.00-5.40); WHITE BLOOD COUNT 6.7 10^3/uL (4.0-10.0)
[2022-07-18 07:35] LABS: ALBUMIN 2.7 G/DL (3.2-5.2); ALKALINE PHOSPHATASE 67 U/L (46-116); ALT/SGPT < 9 U/L (7.0-40); AST/SGOT 14 U/L (<34); BILIRUBIN,TOTAL 0.5 MG/DL (0.3-1.2); BLOOD UREA NITROGEN 15 MG/DL (9-23); CALCIUM LEVEL 9.4 MG/DL (8.3-10.6); CARBON DIOXIDE LEVEL 35 MMOL/L (20-31); CHLORIDE LEVEL 99 MMOL/L (98-107); CREATININE FOR GFR 0.66 MG/DL (0.55-1.30); GLOMERULAR FILTRATION RATE > 60.0 (>39); GLUCOSE, FASTING 95 MG/DL (74-106); MAGNESIUM LEVEL 1.6 MG/DL (1.8-2.4); POTASSIUM SERUM 3.2 MMOL/L (3.5-5.1); SODIUM LEVEL 140 MMOL/L (136-145)
== END ==
LOC: SKLAB5 08:24
PROVIDERS: ATTEND Internal Medicine
DX: D64.9 Anemia, unspecified (principal)

== ENCOUNTER → 2022-07-25 | Outpatient (REF) ==
[2022-07-25 10:19] LABS: HEMATOCRIT 36.2 % (36.0-47.0); MEAN CORPUSCULAR HEMOGLOBIN 26.5 pg (27.0-33.0); MEAN CORPUSCULAR HGB CONC 30.4 g/dl (32.0-36.5); MEAN CORPUSCULAR VOLUME 87.2 fl (80.0-96.0); PLATELET COUNT, AUTOMATED 363 10^3/uL (150-450); RED BLOOD COUNT 4.15 10^6/uL (4.00-5.40); WHITE BLOOD COUNT 7.6 10^3/uL (4.0-10.0)
[2022-07-25 10:47] LABS: BLOOD UREA NITROGEN 14 MG/DL (9-23); CALCIUM LEVEL 9.9 MG/DL (8.3-10.6); CARBON DIOXIDE LEVEL 33 MMOL/L (20-31); CHLORIDE LEVEL 99 MMOL/L (98-107); CREATININE FOR GFR 0.66 MG/DL (0.55-1.30); GLOMERULAR FILTRATION RATE > 60.0 (>39); GLUCOSE, FASTING 115 MG/DL (74-106); POTASSIUM SERUM 3.5 MMOL/L (3.5-5.1); SODIUM LEVEL 138 MMOL/L (136-145)
== END ==
LOC: SKLAB5 10:50
PROVIDERS: ATTEND Internal Medicine
DX: D64.9 Anemia, unspecified (principal)

== ENCOUNTER → 2022-07-31 | Outpatient (REF) | LOC: SKLAB5 14:29 | PROVIDERS: ATTEND Internal Medicine | DX: S82.492D Other fracture of shaft of left fibula, subsequent encounter for closed fracture with routine healing (principal) ==

== ENCOUNTER → 2022-08-01 | Outpatient (REF) ==
[2022-08-01 09:36] LABS: HEMATOCRIT 36.4 % (36.0-47.0); HEMOGLOBIN 11.2 g/dl (12.0-15.5); MEAN CORPUSCULAR HEMOGLOBIN 26.6 pg (27.0-33.0); MEAN CORPUSCULAR HGB CONC 30.8 g/dl (32.0-36.5); MEAN CORPUSCULAR VOLUME 86.5 fl (80.0-96.0); PLATELET COUNT, AUTOMATED 348 10^3/uL (150-450); RED BLOOD COUNT 4.21 10^6/uL (4.00-5.40); WHITE BLOOD COUNT 8.8 10^3/uL (4.0-10.0)
== END ==
LOC: SKLAB5 08:49
PROVIDERS: ATTEND Internal Medicine
DX: N18.9 Chronic kidney disease, unspecified (principal)

== ENCOUNTER → 2022-08-04 | Outpatient (REF) ==
[2022-08-04 07:44] LABS: HEMOGLOBIN 10.3 g/dl (12.0-15.5); MEAN CORPUSCULAR HEMOGLOBIN 25.5 pg (27.0-33.0); MEAN CORPUSCULAR HGB CONC 29.4 g/dl (32.0-36.5); MEAN CORPUSCULAR VOLUME 86.6 fl (80.0-96.0); PLATELET COUNT, AUTOMATED 325 10^3/uL (150-450); RED BLOOD COUNT 4.04 10^6/uL (4.00-5.40)
[2022-08-04 08:12] LABS: BLOOD UREA NITROGEN 14 MG/DL (9-23); CALCIUM LEVEL 9.9 MG/DL (8.3-10.6); CARBON DIOXIDE LEVEL 31 MMOL/L (20-31); CHLORIDE LEVEL 101 MMOL/L (98-107); CREATININE FOR GFR 0.64 MG/DL (0.55-1.30); GLOMERULAR FILTRATION RATE > 60.0 (>39); GLUCOSE, FASTING 93 MG/DL (74-106); IRON (FE) 26 UG/DL (50-170); PERCENT SATURATION 9.4 % (13.2-45.0); POTASSIUM SERUM 3.6 MMOL/L (3.5-5.1); SODIUM LEVEL 138 MMOL/L (136-145); TOTAL IRON BINDING CAPACITY 276 UG/DL (250-425)
== END ==
LOC: SKLAB5 09:15
PROVIDERS: ATTEND Internal Medicine
DX: N18.9 Chronic kidney disease, unspecified (principal); D63.1 Anemia in chronic kidney disease

== ENCOUNTER → 2022-08-08 | Outpatient (REF) | LOC: SKLAB5 14:04 | PROVIDERS: ATTEND Internal Medicine | DX: S81.809A Unspecified open wound, unspecified lower leg, initial encounter (principal) ==

== ENCOUNTER → 2022-08-10 | Outpatient (REF) ==
[2022-08-09 07:15] LABS: HEMOGLOBIN 10.4 g/dl (12.0-15.5); MEAN CORPUSCULAR HEMOGLOBIN 26.3 pg (27.0-33.0); MEAN CORPUSCULAR HGB CONC 30.6 g/dl (32.0-36.5); MEAN CORPUSCULAR VOLUME 85.9 fl (80.0-96.0); PLATELET COUNT, AUTOMATED 267 10^3/uL (150-450); RED BLOOD COUNT 3.96 10^6/uL (4.00-5.40); WHITE BLOOD COUNT 7.5 10^3/uL (4.0-10.0)
[~2022-08-10] MED LIST changes: +FLUT50SP17 NARES; -FLUTISP NARES
== END ==
LOC: SKLAB5 08:55
PROVIDERS: ATTEND Internal Medicine
DX: D64.9 Anemia, unspecified (principal)

== ENCOUNTER → 2022-08-14 | Outpatient (REF) ==
[2022-08-14 14:28] LABS: APPEARANCE, URINE CLEAR (CLEAR); BACTERIA, URINE AUTO NEGATIVE (NEGATIVE); BILIRUBIN, URINE AUTO NEGATIVE (NEGATIVE); BLOOD, URINE BLOOD NEGATIVE (NEGATIVE); COLOR, URINE YELLOW (YELLOW); GLUCOSE, URINE (UA) AUTO NEGATIVE (NEGATIVE); KETONE, URINE AUTO NEGATIVE (NEGATIVE); LEUKOCYTE ESTERASE, URINE AUTO NEGATIVE (NEGATIVE); NITRITE, URINE AUTO NEGATIVE (NEGATIVE); PROTEIN, URINE AUTO NEGATIVE (NEGATIVE); RBC, URINE AUTO 0 /HPF (0-3); SPECIFIC GRAVITY URINE AUTO 1.016 (1.002-1.035); SQUAMOUS EPITHELIAL CELL UR AU 0 /HPF (0-6); UROBILINOGEN, URINE AUTO 0.2 mg/dL (0.0-2.0); WBC, URINE AUTO 1 /HPF (0-3)
== END ==
LOC: SKLAB5 14:15
PROVIDERS: ATTEND Internal Medicine
DX: R30.0 Dysuria (principal)

== ENCOUNTER → 2022-09-16 | Outpatient (REF) | payer MEDICARE, OTHER ==
[2022-09-16 13:50] LABS: APPEARANCE, URINE CLEAR (CLEAR); BACTERIA, URINE AUTO 3+ (NEGATIVE); BILIRUBIN, URINE AUTO NEGATIVE (NEGATIVE); BLOOD, URINE BLOOD NEGATIVE (NEGATIVE); COLOR, URINE YELLOW (YELLOW); GLUCOSE, URINE (UA) AUTO NEGATIVE (NEGATIVE); KETONE, URINE AUTO NEGATIVE (NEGATIVE); LEUKOCYTE ESTERASE, URINE AUTO 2+ (NEGATIVE); NITRITE, URINE AUTO NEGATIVE (NEGATIVE); PROTEIN, URINE AUTO NEGATIVE (NEGATIVE); RBC, URINE AUTO 1 /HPF (0-3); SPECIFIC GRAVITY URINE AUTO 1.012 (1.002-1.035); SQUAMOUS EPITHELIAL CELL UR AU 0 /HPF (0-6); UROBILINOGEN, URINE AUTO 0.2 mg/dL (0.0-2.0); WBC, URINE AUTO 8 /HPF (0-3)
[2022-09-16 15:07] LABS: HEMOGLOBIN 10.4 g/dl (12.0-15.5); MEAN CORPUSCULAR HEMOGLOBIN 25.2 pg (27.0-33.0); MEAN CORPUSCULAR HGB CONC 30.6 g/dl (32.0-36.5); MEAN CORPUSCULAR VOLUME 82.3 fl (80.0-96.0); PLATELET COUNT, AUTOMATED 347 10^3/uL (150-450); RED BLOOD COUNT 4.13 10^6/uL (4.00-5.40)
[2022-09-16 15:22] LABS: ALBUMIN 2.9 G/DL (3.2-5.2); ALKALINE PHOSPHATASE 76 U/L (46-116); ALT/SGPT < 9 U/L (7.0-40); AST/SGOT 11 U/L (<34); BILIRUBIN,TOTAL 0.4 MG/DL (0.3-1.2); BLOOD UREA NITROGEN 29 MG/DL (9-23); CALCIUM LEVEL 9.4 MG/DL (8.3-10.6); CARBON DIOXIDE LEVEL 34 MMOL/L (20-31); CHLORIDE LEVEL 98 MMOL/L (98-107); CREATININE FOR GFR 0.59 MG/DL (0.55-1.30); GLOMERULAR FILTRATION RATE > 60.0 (>39); GLUCOSE, FASTING 94 MG/DL (74-106); POTASSIUM SERUM 3.6 MMOL/L (3.5-5.1); SODIUM LEVEL 138 MMOL/L (136-145); TOTAL PROTEIN 6.4 G/DL (5.7-8.2)
== END ==
LOC: SKLAB5 12:00
PROVIDERS: ATTEND Internal Medicine
DX: R10.9 Unspecified abdominal pain (principal); R53.1 Weakness

== ENCOUNTER → 2022-09-22 | Outpatient (REF) ==
[2022-09-22 10:35] LABS: HEMATOCRIT 35.8 % (36.0-47.0); HEMOGLOBIN 10.9 g/dl (12.0-15.5); MEAN CORPUSCULAR HEMOGLOBIN 25.3 pg (27.0-33.0); MEAN CORPUSCULAR HGB CONC 30.4 g/dl (32.0-36.5); MEAN CORPUSCULAR VOLUME 83.1 fl (80.0-96.0); PLATELET COUNT, AUTOMATED 309 10^3/uL (150-450); RED BLOOD COUNT 4.31 10^6/uL (4.00-5.40); WHITE BLOOD COUNT 7.6 10^3/uL (4.0-10.0)
[2022-09-22 11:05] LABS: ALBUMIN 2.9 G/DL (3.2-5.2); ALKALINE PHOSPHATASE 82 U/L (46-116); ALT/SGPT < 9 U/L (7.0-40); AST/SGOT 10 U/L (<34); BILIRUBIN,TOTAL 0.4 MG/DL (0.3-1.2); BLOOD UREA NITROGEN 25 MG/DL (9-23); CALCIUM LEVEL 9.5 MG/DL (8.3-10.6); CARBON DIOXIDE LEVEL 32 MMOL/L (20-31); CHLORIDE LEVEL 99 MMOL/L (98-107); CREATININE FOR GFR 0.65 MG/DL (0.55-1.30); GLOMERULAR FILTRATION RATE > 60.0 (>39); GLUCOSE, FASTING 117 MG/DL (74-106); POTASSIUM SERUM 3.3 MMOL/L (3.5-5.1); SODIUM LEVEL 138 MMOL/L (136-145); TOTAL PROTEIN 6.6 G/DL (5.7-8.2)
== END ==
LOC: SKLAB5 11:08
PROVIDERS: ATTEND Internal Medicine
DX: D64.9 Anemia, unspecified (principal)

== ENCOUNTER → 2022-09-26 | Outpatient (REF) ==
[2022-09-26 09:32] LABS: BLOOD UREA NITROGEN 31 MG/DL (9-23); CALCIUM LEVEL 9.6 MG/DL (8.3-10.6); CARBON DIOXIDE LEVEL 31 MMOL/L (20-31); CHLORIDE LEVEL 101 MMOL/L (98-107); CREATININE FOR GFR 0.67 MG/DL (0.55-1.30); GLOMERULAR FILTRATION RATE > 60.0 (>39); GLUCOSE, FASTING 143 MG/DL (74-106); POTASSIUM SERUM 3.3 MMOL/L (3.5-5.1); SODIUM LEVEL 136 MMOL/L (136-145)
== END ==
LOC: SKLAB5 07:53
PROVIDERS: ATTEND Internal Medicine
DX: E87.6 Hypokalemia (principal)

== ENCOUNTER → 2022-09-29 | Outpatient (REF) ==
[2022-09-29 14:13] LABS: HEMATOCRIT 37.6 % (36.0-47.0); HEMOGLOBIN 11.3 g/dl (12.0-15.5); MEAN CORPUSCULAR HEMOGLOBIN 24.9 pg (27.0-33.0); MEAN CORPUSCULAR HGB CONC 30.1 g/dl (32.0-36.5); MEAN CORPUSCULAR VOLUME 82.8 fl (80.0-96.0); PLATELET COUNT, AUTOMATED 380 10^3/uL (150-450); RED BLOOD COUNT 4.54 10^6/uL (4.00-5.40); WHITE BLOOD COUNT 10.1 10^3/uL (4.0-10.0)
[2022-09-29 14:45] LABS: BLOOD UREA NITROGEN 33 MG/DL (9-23); CALCIUM LEVEL 9.9 MG/DL (8.3-10.6); CARBON DIOXIDE LEVEL 29 MMOL/L (20-31); CHLORIDE LEVEL 100 MMOL/L (98-107); CREATININE FOR GFR 0.65 MG/DL (0.55-1.30); GLOMERULAR FILTRATION RATE > 60.0 (>39); GLUCOSE, FASTING 133 MG/DL (74-106); POTASSIUM SERUM 3.9 MMOL/L (3.5-5.1); SODIUM LEVEL 138 MMOL/L (136-145)
[2022-09-29 14:49] LABS: APPEARANCE, URINE HAZY (CLEAR); BACTERIA, URINE AUTO 1+ (NEGATIVE); BILIRUBIN, URINE AUTO NEGATIVE (NEGATIVE); BLOOD, URINE BLOOD NEGATIVE (NEGATIVE); COLOR, URINE YELLOW (YELLOW); GLUCOSE, URINE (UA) AUTO NEGATIVE (NEGATIVE); KETONE, URINE AUTO TRACE mg/dL (NEGATIVE); LEUKOCYTE ESTERASE, URINE AUTO 3+ (NEGATIVE); MUCUS, URINE SMALL (NEGATIVE); NITRITE, URINE AUTO POSITIVE (NEGATIVE); PROTEIN, URINE AUTO NEGATIVE (NEGATIVE); RBC, URINE AUTO 2 /HPF (0-3); SPECIFIC GRAVITY URINE AUTO 1.018 (1.002-1.035); SQUAMOUS EPITHELIAL CELL UR AU 0 /HPF (0-6); UROBILINOGEN, URINE AUTO 0.2 mg/dL (0.0-2.0); WBC, URINE AUTO TNTC /HPF (0-3)
== END ==
LOC: SKLAB5 12:54
PROVIDERS: ATTEND Internal Medicine
DX: R10.9 Unspecified abdominal pain (principal)

== ENCOUNTER → 2022-10-24 | Outpatient (REF) | payer MEDICARE, OTHER ==
[2022-10-24 20:33] LABS: APPEARANCE, URINE HAZY (CLEAR); BACTERIA, URINE AUTO 3+ (NEGATIVE); BILIRUBIN, URINE AUTO NEGATIVE (NEGATIVE); BLOOD, URINE BLOOD NEGATIVE (NEGATIVE); COLOR, URINE YELLOW (YELLOW); GLUCOSE, URINE (UA) AUTO NEGATIVE (NEGATIVE); KETONE, URINE AUTO NEGATIVE (NEGATIVE); LEUKOCYTE ESTERASE, URINE AUTO TRACE (NEGATIVE); MUCUS, URINE SMALL (NEGATIVE); NITRITE, URINE AUTO POSITIVE (NEGATIVE); PROTEIN, URINE AUTO NEGATIVE (NEGATIVE); RBC, URINE AUTO 1 /HPF (0-3); SQUAMOUS EPITHELIAL CELL UR AU 6 /HPF (0-6); UROBILINOGEN, URINE AUTO 0.2 mg/dL (0.0-2.0); WBC, URINE AUTO 10 /HPF (0-3)
== END ==
LOC: SKLAB5 20:05
PROVIDERS: ATTEND Internal Medicine
DX: R10.9 Unspecified abdominal pain (principal); R35.0 Frequency of micturition

== ENCOUNTER → 2022-10-31 | Outpatient (CLI) | payer MEDICARE, OTHER | LOC: M RAD 11:00 | PROVIDERS: ATTEND Surgery | DX: L97.922 Non-pressure chronic ulcer of unspecified part of left lower leg with fat layer exposed (principal); R09.89 Other specified symptoms and signs involving the circulatory and respiratory systems ==

== ENCOUNTER → 2022-11-02 | Outpatient (CLI) | payer MEDICARE, OTHER ==
[2022-11-02 16:21] LABS: BASO % 0.3 % (0.0-1.0); EOS # 0.2 10^3/uL (0.0-0.5); HEMATOCRIT 36.9 % (36.0-47.0); HEMOGLOBIN 11.1 g/dl (12.0-15.5); LYMPH # 1.6 10^3/uL (1.5-5.0); LYMPH % 15.9 % (24.0-44.0); MEAN CORPUSCULAR HEMOGLOBIN 24.4 pg (27.0-33.0); MEAN CORPUSCULAR HGB CONC 30.1 g/dl (32.0-36.5); MEAN CORPUSCULAR VOLUME 81.1 fl (80.0-96.0); MONO # 0.6 10^3/uL (0.0-0.8); MONO % 6.2 % (2.0-8.0); NEUTROPHILS # 7.7 10^3/uL (1.5-8.5); NEUTROPHILS % 75.4 % (36.0-66.0); PLATELET COUNT, AUTOMATED 387 10^3/uL (150-450); RED BLOOD COUNT 4.55 10^6/uL (4.00-5.40); WHITE BLOOD COUNT 10.2 10^3/uL (4.0-10.0)
[2022-11-02 18:18] LABS: APPEARANCE, URINE TURBID (CLEAR); BACTERIA, URINE AUTO 1+ (NEGATIVE); BILIRUBIN, URINE AUTO NEGATIVE (NEGATIVE); BLOOD, URINE BLOOD NEGATIVE (NEGATIVE); COLOR, URINE AMBER (YELLOW); GLUCOSE, URINE (UA) AUTO NEGATIVE (NEGATIVE); KETONE, URINE AUTO NEGATIVE (NEGATIVE); LEUKOCYTE ESTERASE, URINE AUTO NEGATIVE (NEGATIVE); MUCUS, URINE SMALL (NEGATIVE); NITRITE, URINE AUTO NEGATIVE (NEGATIVE); PROTEIN, URINE AUTO NEGATIVE (NEGATIVE); RBC, URINE AUTO 0 /HPF (0-3); SPECIFIC GRAVITY URINE AUTO 1.017 (1.002-1.035); SQUAMOUS EPITHELIAL CELL UR AU 6 /HPF (0-6); UROBILINOGEN, URINE AUTO 0.2 mg/dL (0.0-2.0); WBC, URINE AUTO 1 /HPF (0-3)
[2022-11-02 18:27] LABS: HEMOGLOBIN A1c 5.5 % (4.0-6.0)
== END ==
LOC: M PLALAB 14:07
PROVIDERS: ATTEND Physician Assistant
DX: R30.0 Dysuria (principal); D64.9 Anemia, unspecified; R73.03 Prediabetes

== ENCOUNTER → 2023-01-02 | Outpatient (CLI) | payer MEDICARE, OTHER ==
[2023-01-02 15:36] LABS: HEMATOCRIT 41.9 % (36.0-47.0); HEMOGLOBIN 12.7 g/dl (12.0-15.5); MEAN CORPUSCULAR HEMOGLOBIN 26.5 pg (27.0-33.0); MEAN CORPUSCULAR HGB CONC 30.3 g/dl (32.0-36.5); MEAN CORPUSCULAR VOLUME 87.5 fl (80.0-96.0); PLATELET COUNT, AUTOMATED 333 10^3/uL (150-450); RED BLOOD COUNT 4.79 10^6/uL (4.00-5.40)
[2023-01-02 16:21] LABS: BLOOD UREA NITROGEN 25 MG/DL (9-23); CALCIUM LEVEL 10.2 MG/DL (8.3-10.6); CARBON DIOXIDE LEVEL 29 MMOL/L (20-31); CHLORIDE LEVEL 104 MMOL/L (98-107); CHOLESTEROL LEVEL 130 MG/DL (<200); CHOLESTEROL RISK RATIO 2.43 (<5); CREATININE FOR GFR 0.77 MG/DL (0.55-1.30); GLOMERULAR FILTRATION RATE > 60.0 (>39); GLUCOSE, FASTING 94 MG/DL (74-106); HDL CHOLESTEROL 53.3 MG/DL (>40); LDL CHOLESTEROL 45.9 MG/DL (<100); NON-HDL-C 76.7 MG/DL; SODIUM LEVEL 143 MMOL/L (136-145); TRIGLYCERIDES LEVEL 154 MG/DL (<150)
[2023-01-02 16:22] LABS: TOTAL 25(OH) VITAMIN D 54.6 NG/ML (20.0-100.0)
== END ==
LOC: M PLALAB 10:07
PROVIDERS: ATTEND Family Medicine
DX: E55.9 Vitamin D deficiency, unspecified (principal); I10 Essential (primary) hypertension; E87.6 Hypokalemia; E78.2 Mixed hyperlipidemia; D64.9 Anemia, unspecified

== ENCOUNTER → 2023-05-10 | Outpatient (CLI) | payer MEDICARE, OTHER ==
[~2023-05-10] MED LIST changes: -FLUT50SP17 NARES; +FLUTISP NARES
== END ==
LOC: M WHC 11:21
PROVIDERS: ATTEND Family Medicine
DX: Z12.31 Encounter for screening mammogram for malignant neoplasm of breast (principal)

== ENCOUNTER → 2023-10-09 | Outpatient (CLI) | payer MEDICARE, OTHER ==
[2023-10-09 18:02] LABS: BLOOD UREA NITROGEN 22 MG/DL (9-23); CALCIUM LEVEL 9.7 MG/DL (8.3-10.6); CARBON DIOXIDE LEVEL 32 MMOL/L (20-31); CHLORIDE LEVEL 105 MMOL/L (98-107); CHOLESTEROL LEVEL 138 MG/DL (<200); CHOLESTEROL RISK RATIO 2.68 (<5); CREATININE FOR GFR 0.93 MG/DL (0.55-1.30); GLOMERULAR FILTRATION RATE > 60.0 (>39); GLUCOSE, FASTING 79 MG/DL (74-106); HDL CHOLESTEROL 51.4 MG/DL (>40); NON-HDL-C 86.6 MG/DL; SODIUM LEVEL 142 MMOL/L (136-145); TRIGLYCERIDES LEVEL 133 MG/DL (<150)
[2023-10-09 18:05] LABS: HEMOGLOBIN 12.5 g/dl (12.0-15.5); MEAN CORPUSCULAR HEMOGLOBIN 29.9 pg (27.0-33.0); MEAN CORPUSCULAR HGB CONC 32.1 g/dl (32.0-36.5); MEAN CORPUSCULAR VOLUME 93.3 fl (80.0-96.0); PLATELET COUNT, AUTOMATED 331 10^3/uL (150-450); RED BLOOD COUNT 4.18 10^6/uL (4.00-5.40); WHITE BLOOD COUNT 8.1 10^3/uL (4.0-10.0)
== END ==
LOC: M PLALAB 15:12
PROVIDERS: ATTEND Family Medicine
DX: K27.9 Peptic ulcer, site unspecified, unspecified as acute or chronic, without hemorrhage or perforation (principal); E78.2 Mixed hyperlipidemia; R73.03 Prediabetes; I10 Essential (primary) hypertension

== ENCOUNTER → 2023-10-11 | Outpatient (REF) | payer MEDICARE, OTHER ==
[2023-10-11 15:51] LABS: APPEARANCE, URINE TURBID (CLEAR); BACTERIA, URINE AUTO 3+ (NEGATIVE); BILIRUBIN, URINE AUTO NEGATIVE (NEGATIVE); BLOOD, URINE BLOOD NEGATIVE (NEGATIVE); COLOR, URINE AMBER (YELLOW); GLUCOSE, URINE (UA) AUTO NEGATIVE (NEGATIVE); KETONE, URINE AUTO NEGATIVE (NEGATIVE); LEUKOCYTE ESTERASE, URINE AUTO 2+ (NEGATIVE); MUCUS, URINE SMALL (NEGATIVE); NITRITE, URINE AUTO NEGATIVE (NEGATIVE); PROTEIN, URINE AUTO 1+ mg/dL (NEGATIVE); RBC, URINE AUTO 2 /HPF (0-3); SPECIFIC GRAVITY URINE AUTO 1.024 (1.002-1.035); SQUAMOUS EPITHELIAL CELL UR AU 3 /HPF (0-6); UROBILINOGEN, URINE AUTO 0.2 mg/dL (0.0-2.0); WBC, URINE AUTO TNTC /HPF (0-3)
== END ==
LOC: M SFHCPLAZ 14:59
PROVIDERS: ATTEND Family Medicine
DX: R30.0 Dysuria (principal)

== ENCOUNTER → 2024-01-01 | Outpatient (CLI) | payer MEDICARE, OTHER | LOC: M SLEEP 20:00 | PROVIDERS: ATTEND Physician Assistant | DX: G47.33 Obstructive sleep apnea (adult) (pediatric) (principal) ==

== ENCOUNTER → 2024-03-19 | Outpatient (CLI) | payer MEDICARE, OTHER ==
[2024-03-19 14:59] LABS: BASO % 0.6 % (0.0-1.0); EOS # 0.2 10^3/uL (0.0-0.5); EOS % 3.4 % (0.0-3.0); HEMATOCRIT 39.1 % (36.0-47.0); HEMOGLOBIN 12.4 g/dl (12.0-15.5); LYMPH # 1.8 10^3/uL (1.5-5.0); LYMPH % 26.4 % (24.0-44.0); MEAN CORPUSCULAR HEMOGLOBIN 29.9 pg (27.0-33.0); MEAN CORPUSCULAR HGB CONC 31.7 g/dl (32.0-36.5); MEAN CORPUSCULAR VOLUME 94.2 fl (80.0-96.0); MONO # 0.5 10^3/uL (0.0-0.8); MONO % 6.6 % (2.0-8.0); NEUTROPHILS # 4.4 10^3/uL (1.5-8.5); NEUTROPHILS % 62.7 % (36.0-66.0); PLATELET COUNT, AUTOMATED 302 10^3/uL (150-450); RED BLOOD COUNT 4.15 10^6/uL (4.00-5.40)
[2024-03-19 15:34] LABS: ALBUMIN 3.9 G/DL (3.2-5.2); ALKALINE PHOSPHATASE 61 U/L (35-104); ALT/SGPT < 9 U/L (7.0-40); AST/SGOT 10 U/L (<34); BILIRUBIN,TOTAL 0.3 MG/DL (0.3-1.2); BLOOD UREA NITROGEN 40 MG/DL (9-23); CALCIUM LEVEL 10.4 MG/DL (8.3-10.6); CARBON DIOXIDE LEVEL 32 MMOL/L (20-31); CHLORIDE LEVEL 104 MMOL/L (98-107); CREATININE FOR GFR 0.84 MG/DL (0.55-1.30); GLOMERULAR FILTRATION RATE > 60.0 (>39); GLUCOSE, FASTING 90 MG/DL (74-106); POTASSIUM SERUM 4.2 MMOL/L (3.5-5.1); SODIUM LEVEL 141 MMOL/L (136-145); TOTAL PROTEIN 7.7 G/DL (5.7-8.2)
[2024-03-19 15:36] LABS: TOTAL 25(OH) VITAMIN D 47.9 NG/ML (20.0-100.0)
[2024-03-19 16:05] LABS: HEMOGLOBIN A1c 5.1 % (4.0-6.0)
== END ==
LOC: M PLALAB 10:15
PROVIDERS: ATTEND Family Medicine
DX: Z01.818 Encounter for other preprocedural examination (principal); I10 Essential (primary) hypertension; B35.1 Tinea unguium; R73.03 Prediabetes; E55.9 Vitamin D deficiency, unspecified

== ENCOUNTER → 2024-07-25 | Outpatient (CLI) | payer MEDICARE, OTHER ==
[2024-07-25 14:13] LABS: BASO % 0.5 % (0.0-1.0); EOS # 0.1 10^3/uL (0.0-0.5); EOS % 2.1 % (0.0-3.0); HEMATOCRIT 38.9 % (36.0-47.0); HEMOGLOBIN 11.5 g/dl (12.0-15.5); LYMPH # 1.7 10^3/uL (1.5-5.0); LYMPH % 26.9 % (24.0-44.0); MEAN CORPUSCULAR HEMOGLOBIN 25.6 pg (27.0-33.0); MEAN CORPUSCULAR HGB CONC 29.6 g/dl (32.0-36.5); MEAN CORPUSCULAR VOLUME 86.4 fl (80.0-96.0); MONO # 0.5 10^3/uL (0.0-0.8); MONO % 7.5 % (2.0-8.0); NEUTROPHILS # 3.9 10^3/uL (1.5-8.5); NEUTROPHILS % 62.8 % (36.0-66.0); PLATELET COUNT, AUTOMATED 320 10^3/uL (150-450); WHITE BLOOD COUNT 6.1 10^3/uL (4.0-10.0)
[2024-07-25 14:19] LABS: ALBUMIN 3.6 G/DL (3.2-5.2); ALKALINE PHOSPHATASE 61 U/L (35-104); ALT/SGPT < 9 U/L (7.0-40); AST/SGOT 14 U/L (<34); BILIRUBIN,TOTAL 0.4 MG/DL (0.3-1.2); BLOOD UREA NITROGEN 23 MG/DL (9-23); CALCIUM LEVEL 9.8 MG/DL (8.3-10.6); CARBON DIOXIDE LEVEL 29 MMOL/L (20-31); CHLORIDE LEVEL 102 MMOL/L (98-107); CREATININE FOR GFR 0.63 MG/DL (0.55-1.30); GLOMERULAR FILTRATION RATE > 60.0 (>39); GLUCOSE, FASTING 97 MG/DL (74-106); POTASSIUM SERUM 4.3 MMOL/L (3.5-5.1); SODIUM LEVEL 143 MMOL/L (136-145); TOTAL PROTEIN 7.6 G/DL (5.7-8.2)
== END ==
LOC: M PLALAB 10:17
PROVIDERS: ATTEND Family Medicine
DX: I10 Essential (primary) hypertension (principal); T84.012S Broken internal right knee prosthesis, sequela; Y79.2 Prosthetic and other implants, materials and accessory orthopedic devices associated with adverse incidents

== ENCOUNTER → 2024-08-13 | Outpatient (CLI) | payer MEDICARE, OTHER | LOC: M WHC 12:30 | PROVIDERS: ATTEND Family Medicine | DX: Z12.31 Encounter for screening mammogram for malignant neoplasm of breast (principal); R92.313 Mammographic fatty tissue density, bilateral breasts ==

== ENCOUNTER → 2025-01-06 | Outpatient (CLI) | payer MEDICARE, OTHER ==
[~2025-01-06] MED LIST changes: -EQL50TAB2 PO; +VITA1TAB82 PO
[2025-01-06 12:00] LABS: BASO # 0.0 10^3/uL (0.0-0.2); BASO % 0.5 % (0.0-1.0); EOS # 0.2 10^3/uL (0.0-0.5); EOS % 3.2 % (0.0-3.0); LYMPH # 1.6 10^3/uL (1.5-5.0); LYMPH % 25.8 % (24.0-44.0); MONO # 0.5 10^3/uL (0.0-0.8); MONO % 7.4 % (2.0-8.0); NEUTROPHILS # 3.9 10^3/uL (1.5-8.5); NEUTROPHILS % 62.9 % (36.0-66.0); PLATELET COUNT, AUTOMATED 249 10^3/uL (150-450)
[2025-01-06 12:09] LABS: ERYTHROCYTE SEDIMENTATION RATE 54 mm/hr (0-30)
[2025-01-06 12:21] LABS: ALT/SGPT 11.0 U/L (7.0-40); AST/SGOT 24.0 U/L (<34); C REACTIVE PROTEIN QUANTITATIV 0.56 MG/DL (<1.0); CALCIUM LEVEL 10.4 MG/DL (8.3-10.6); CARBON DIOXIDE LEVEL 30.0 MMOL/L (20-31); CHLORIDE LEVEL 103.0 MMOL/L (98-107); CREATININE FOR GFR 0.76 MG/DL (0.55-1.30); GLOMERULAR FILTRATION RATE 81.2 (>39); POTASSIUM SERUM 4.5 MMOL/L (3.5-5.1); SODIUM LEVEL 144.0 MMOL/L (136-145)
== END ==
LOC: M PLALAB 09:48
PROVIDERS: ATTEND Internal Medicine Infectious Disease
DX: T84.59XD Infection and inflammatory reaction due to other internal joint prosthesis, subsequent encounter (principal)

== ENCOUNTER → 2025-01-06 | Outpatient (CLI) | payer MEDICARE, OTHER ==
[2025-01-06 11:53] LABS: APPEARANCE, URINE CLEAR (CLEAR); BACTERIA, URINE AUTO NEGATIVE (NEGATIVE); BILIRUBIN, URINE AUTO NEGATIVE (NEGATIVE); BLOOD, URINE BLOOD NEGATIVE (NEGATIVE); GLUCOSE, URINE (UA) AUTO NEGATIVE (NEGATIVE); KETONE, URINE AUTO NEGATIVE (NEGATIVE); LEUKOCYTE ESTERASE, URINE AUTO NEGATIVE (NEGATIVE); MUCUS, URINE SMALL (NEGATIVE); NITRITE, URINE AUTO NEGATIVE (NEGATIVE); PROTEIN, URINE AUTO NEGATIVE (NEGATIVE); RBC, URINE AUTO 0 /HPF (0-3); SPECIFIC GRAVITY URINE AUTO 1.017 (1.002-1.035); SQUAMOUS EPITHELIAL CELL UR AU 0 /HPF (0-6); UROBILINOGEN, URINE AUTO 0.2 mg/dL (0.0-2.0); WBC, URINE AUTO 0 /HPF (0-3)
[2025-01-06 12:01] LABS: PLATELET COUNT, AUTOMATED 251 10^3/uL (150-450)
[2025-01-06 12:20] LABS: CREATININE, URINE 65.8 MG/DL; MALB URINE SIEMENS 8.0 MG/L; MAU/CREAT RATIO 12.1 MCG/MG (0.0-30.0)
[2025-01-06 12:21] LABS: ALT/SGPT 11.0 U/L (7.0-40); AST/SGOT 23.0 U/L (<34); CALCIUM LEVEL 10.5 MG/DL (8.3-10.6); CARBON DIOXIDE LEVEL 30.0 MMOL/L (20-31); CHLORIDE LEVEL 103.0 MMOL/L (98-107); CHOLESTEROL LEVEL 162.0 MG/DL (<200); CHOLESTEROL RISK RATIO 2.89 (<5); CREATININE FOR GFR 0.76 MG/DL (0.55-1.30); GLOMERULAR FILTRATION RATE 81.2 (>39); IRON (FE) 68.0 UG/DL (50-170); LDL CHOLESTEROL 67.8 MG/DL (<100); NON-HDL-C 106.0 MG/DL; PERCENT SATURATION 21.4 % (13.2-45.0); POTASSIUM SERUM 4.5 MMOL/L (3.5-5.1); SODIUM LEVEL 144.0 MMOL/L (136-145); TRIGLYCERIDES LEVEL 191.0 MG/DL (<150)
[2025-01-06 12:22] LABS: TOTAL 25(OH) VITAMIN D 54.4 NG/ML (20.0-100.0)
[2025-01-06 12:26] LABS: ESTIMATED AVERAGE GLUCOSE 117.0 MG/DL (60-110)
== END ==
LOC: M PLALAB 09:45
PROVIDERS: ATTEND Family Medicine
DX: K27.9 Peptic ulcer, site unspecified, unspecified as acute or chronic, without hemorrhage or perforation (principal); R73.03 Prediabetes; E78.2 Mixed hyperlipidemia; I10 Essential (primary) hypertension; E55.9 Vitamin D deficiency, unspecified; D64.9 Anemia, unspecified; R30.0 Dysuria; T84.59XD Infection and inflammatory reaction due to other internal joint prosthesis, subsequent encounter